=== PATIENT | female | born 1940 | race Hispanic/Latino ===

== ENCOUNTER 2017-03-23 18:18 | Emergency (ER) | payer MEDICARE, OTHER ==
[2017-03-23 18:35] VITALS: BP 153/82; PULSE 79; RESP 19; TEMP 97.7; O2SAT 97
--- NOTE | 2017-03-23 19:33 | ED PDOC ---
HPI: Trauma/Fall - HPI Time Seen by Provider: 03/23/17 19:12 Chief Complaint (Nursing): Trauma Chief Complaint (Provider): fall injury History Per: Patient History/Exam Limitations: no limitations Onset/Duration Of Symptoms: Mins (prior to arrival) Additional Complaint(s): 76 year old female with previous medical history of glaucoma and asthma, who presents to the emergency department for an evaluation of left-sided rib pain status post tripping on a curb prior to arrival. Denied any loss of consciousness, shortness of breath, abdominal pain, nausea or vomiting. PMD: Sincere Alex MD Past Medical History Reviewed: Historical Data, Nursing Documentation, Vital Signs Vital Signs: Last Vital Signs Temp 97.7 F 03/23/17 18:29 Pulse 79 03/23/17 18:29 Resp 19 03/23/17 18:29 BP 153/82 H 03/23/17 18:29 Pulse Ox 97 03/23/17 18:29 - Medical History PMH: Asthma Denies: No Chronic Diseases, Diabetes, HTN Other PMH: glucoma - Surgical History Surgical History: No Surg Hx - Family History Family History: States: Unknown Family Hx - Home Medications Home Medications: Ambulatory Orders Medication Instructions Recorded Ibuprofen [Motrin] 600 mg PO TID 7 Days tab 03/23/17 - Allergies Allergies/Adverse Reactions: Allergies Allergy/AdvReac Type Severity Reaction Status Date / Time clams Allergy VOMITING Verified 03/23/17 18:36 Penicillins Allergy ANAPHYLAXIS Verified 03/23/17 18:36 Review of Systems ROS Statement: Except As Marked, All Systems Reviewed And Found Negative Respiratory: Negative for: Shortness of Breath Gastrointestinal: Negative for: Nausea, Vomiting, Abdominal Pain Musculoskeletal: Positive for: Other (left-sided rib pain) Neurological: Negative for: Other (LOC) Physical Exam - Reviewed Nursing Documentation Reviewed: Yes Vital Signs Reviewed: Yes - Physical Exam Appears: Positive for: No Acute Distress, Uncomfortable Head Exam: Positive for: ATRAUMATIC, NORMAL INSPECTION, NORMOCEPHALIC Cardiovascular/Chest: Positive for: Regular Rate, Rhythm, Chest Non Tender Respiratory: Positive for: Normal Breath Sounds. Negative for: Decreased Breath Sounds, Respiratory Distress Gastrointestinal/Abdominal: Positive for: Normal Exam, Soft. Negative for: Tenderness Back: Positive for: Other (left-sided upper lateral back tenderness with no ecchymosis, edema or deformity). Negative for: Normal Inspection Extremity: Positive for: Normal ROM (upper/lower) Neurologic/Psych: Positive for: Alert (x3), Oriented - ECG O2 Sat by Pulse Oximetry: 97 (RA) Pulse Ox Interpretation: Normal - Radiology X-Ray: Interpreted by Me, Viewed By Me X-Ray Interpretation: No Acute Disease - Progress ED Course And Treament: 2054: Stable. AAOx3. Pain controlled. Fu with pcp. Medical Decision Making Medical Decision Making: Initial Impression: Rib injury S/P fall Initial Plan: * Toradol 15mg IM * Xray ribs (left) Scribe Attestation: Documented by Prema Cruz, acting as a scribe for Jordan Munoz MD. Provider Scribe Attestation: All medical record entries made by the Scribe were at my direction and personally dictated by me. I have reviewed the chart and agree that the record accurately reflects my personal performance of the history, physical exam, medical decision making, and the department course for this patient. I have also personally directed, reviewed, and agree with the discharge instructions and disposition. Disposition - Clinical Impression Clinical Impression: Chest wall contusion - Patient ED Disposition Is Patient to be Admitted: No Counseled Patient/Family Regarding: Studies Performed, Diagnosis, Need For Followup, Rx Given - Disposition Referrals: [facility] [Outside] - 03/24/17 Disposition: Routine/Home Disposition Time: 20:55 Condition: STABLE Additional Instructions: Return if not better in 3 days. Prescriptions: Ibuprofen [Motrin] 600 mg PO TID 7 Days tab Instructions: Chest Wall Pain (ED) Forms: [email or web address] (H[place]er)
--- NOTE | 2017-03-24 10:13 | RAD ---
PROCEDURE: Radiographs of the Chest and Left Ribs. HISTORY: pain COMPARISON: None available. TECHNIQUE: Frontal radiograph of the chest and multiple oblique radiographs of the left ribs were obtained. FINDINGS: LEFT RIBS: No acute rib fracture or destructive bony lesion visualized. LUNGS: The lungs are well inflated and clear. PLEURA: No pneumothorax or pleural fluid. CARDIOVASCULAR: Normal sized heart. No pulmonary vascular congestion. OTHER FINDINGS: None. IMPRESSION: No acute rib fracture. Clear lungs.
== END 2017-03-23 21:20 | disposition home or self-care (01) ==
LOC: H.ER 18:18
DX: S20.219A Contusion of unspecified front wall of thorax, initial encounter (principal); W19.XXXA Unspecified fall, initial encounter; Y92.480 Sidewalk as the place of occurrence of the external cause; H40.9 Unspecified glaucoma; Z88.0 Allergy status to penicillin; J45.909 Unspecified asthma, uncomplicated
CPT/HCPCS: 71101; 96372; 99282; J1885

== ENCOUNTER 2017-06-01 16:18 | Inpatient (IN) | payer MEDICARE, OTHER ==
[2017-06-01] MEDS ORDERED: Iohexol 240 (50 ml) PO ONE (17:39)
[2017-06-01] MEDS ORDERED: Sodium Chloride 0.9% 1,000 ML IV STA (17:40)
[2017-06-01] MEDS ORDERED: Iohexol 240 (50 ml) ONE (17:59)
--- NOTE | 2017-06-01 18:06 | ED PDOC ---
HPI: Abdomen Time Seen by Provider: 06/01/17 16:46 Chief Complaint (Nursing): Abdominal Pain Chief Complaint (Provider): Abominal pain History Per: Patient History/Exam Limitations: no limitations Onset/Duration Of Symptoms: Days (Noon yesterday), Worse Since (onset) Current Symptoms Are (Timing): Still Present Location Of Pain/Discomfort: RUQ, RLQ, LLQ, Suprapubic Quality Of Discomfort: "Pain" Associated Symptoms: Nausea, Loss Of Appetite, Urinary Symptoms (possible blood in urine). denies: Vomiting, Diarrhea, Constipation, Other (black or bloody stool. ) Additional Complaint(s): Lluvia Mendenhall is a 76 year old female, with a past medical history of asthma , who presents to the emergency department complaining of abdominal pain onset since noon yesterday. Patient reports a suprapubic pain at noon yesterday that lasted half an hour and resolved spontaneously. Around midnight last night it reoccurred and its now constant and worsening since onset. She states the pain is in the suprapubic and bilateral lower quadrant region and feels like it's radiating to the RUQ. She also reports possible bloody urine, nausea, and loss of appetite today. Patient saw Dr. Poole today who advised to come to the ER for further evaluation. She denies any diarrhea, vomiting, constipation, black or bloody stool. No further medical complaints. PMD: Jerome Poole Past Medical History Reviewed: Historical Data, Nursing Documentation, Vital Signs Vital Signs: Last Vital Signs Temp 99.3 F 06/07/17 07:55 Pulse 68 06/07/17 07:55 Resp 20 06/07/17 07:55 BP 130/71 06/07/17 07:55 Pulse Ox 96 06/07/17 07:55 - Medical History PMH: Asthma Denies: Diabetes, HTN, Chronic Kidney Disease - Surgical History Surgical History: Tonsillectomy Other surgeries: bunion surgery - Family History Family History: States: Other Other Family History: COPD - Social History Current smoker - smoking cessation education provided: No Alcohol: Social Drugs: Denies - Home Medications Home Medications: Ambulatory Orders Medication Instructions Recorded Naproxen [Naprosyn] 500 mg PO BID 06/01/17 Doxycycline Hyclate [Doryx] 100 mg PO Q12 14 Days #28 cap 06/07/17 metroNIDAZOLE [Flagyl] 500 mg PO Q8 14 Days #42 tab 06/07/17 - Allergies Allergies/Adverse Reactions: Allergies Allergy/AdvReac Type Severity Reaction Status Date / Time clams Allergy VOMITING Verified 03/23/17 18:36 Penicillins Allergy ANAPHYLAXIS Verified 03/23/17 18:36 Review of Systems ROS Statement: Except As Marked, All Systems Reviewed And Found Negative Gastrointestinal: Positive for: Nausea, Abdominal Pain (Suprapubic, LLQ, RLQ, RUQ. ), Other (loss of appetite.). Negative for: Vomiting, Diarrhea, Constipation, Melena Physical Exam - Reviewed Nursing Documentation Reviewed: Yes Vital Signs Reviewed: Yes - Physical Exam Appears: Positive for: Non-toxic Head Exam: Positive for: ATRAUMATIC, NORMAL INSPECTION, NORMOCEPHALIC Skin: Positive for: Normal Color, Warm, Dry Eye Exam: Positive for: EOMI, PERRL ENT: Negative for: Pharyngeal Erythema, Tonsillar Exudate Neck: Positive for: Painless ROM, Supple Cardiovascular/Chest: Positive for: Regular Rate, Rhythm. Negative for: Murmur Respiratory: Positive for: Normal Breath Sounds. Negative for: Respiratory Distress Gastrointestinal/Abdominal: Positive for: Soft, Tenderness (Suprapubic tenderness. b/l lower quadrant tenderness to palpation, right side more so than left. Positive McBurney's point and RUQ tenderness. ). Negative for: Mass, Distended, Guarding, Rebound Back: Positive for: Normal Inspection. Negative for: L CVA Tenderness, R CVA Tenderness Extremity: Positive for: Normal ROM. Negative for: Deformity Lymphatic: Negative for: Adenopathy Neurologic/Psych: Positive for: Alert, Oriented. Negative for: Motor/Sensory Deficits - Laboratory Results Result Diagrams: 06/06/17 06:20 06/06/17 06:20 - ECG O2 Sat by Pulse Oximetry: 97 (RA) Pulse Ox Interpretation: Normal Medical Decision Making Medical Decision Making: Initial Impression: abdominal pain. Differential includes but not limited to appendicitis, colitis, enteritis, UTI cystitis. Initial Plan: --Type and screen --Abd Pelvis PO & IV contrast [CT] --CMP --Lact Acid, Plasma --Urine dipstick --CBC w/ differential --PTT --PT --Omnipaque 240 50 ml PO --Morphine 4 mg IVP --Sodium Chloride 1,000 ml IV 150 mls/hr --Zofran Inj 8 mg IV --Blood culture --Urine culture --Urinalysis --Reevaluation 22:11 Abdomen/Pelvis CT FINDINGS: LOWER THORAX: Small hiatal hernia. ABDOMEN: LIVER: Fatty infiltration of the liver. GALLBLADDER AND BILE DUCTS: No CT evidence of acute cholecystitis. No evidence of significant biliary ductal dilatation. PANCREAS: No CT evidence of acute pancreatitis. SPLEEN: 1.6 cm low-density splenic lesion. This does not appear to represents a simple cyst. It could represent a hemangioma. No evidence of diffuse splenic lesions. No evidence of significant splenomegaly. ADRENALS: No acute abnormality of the adrenal glands identified. KIDNEYS AND URETERS: 2 cm peripelvic cyst in the lower pole of the right kidney. Bilateral perinephric stranding, a nonspecific finding. No evidence of hydroureteronephrosis. STOMACH AND BOWEL: Findings highly suspicious for a partial small bowel obstruction, secondary to a focally thick walled pelvic small bowel loop, image 127/series 3. This small bowel loop is markedly thick walled, and abuts a suspected small abscess in the anterior pelvis, described below. There is mild dilatation of multiple small bowel loops proximal to the thickwalled loops, and the small bowel loops distal to it are mildly decompressed to normal in caliber. There is passage of enteric contrast through the entire small bowel, into the colon, with no evidence of a complete or high grade SBO. Extensive colonic diverticulosis. APPENDIX: Appendix is seen, and is within normal limits in appearance. PELVIS: BLADDER: No acute abnormality of the bladder identified. REPRODUCTIVE:No acute abnormality of the reproductive organs is seen. No acute abnormality of the uterus identified. No evidence of large adnexal masses. ABDOMEN and PELVIS: INTRAPERITONEAL SPACE: Best seen on image 133 of series 3, there is a 3 x 1.6 cm ovoid collection of fluid and air in the anterior pelvis, highly suspicious for a pelvic abscess. This closely abuts the markedly thick-walled small bowel loop in the pelvis described above. It also connects via a small tract of air to the sigmoid colon, and abuts the bladder. There is nearby pelvic fat stranding, suspicious for inflammation. There is nearby wall thickening of the sigmoid colon, and there is extensive sigmoid diverticulitis. The abscess could be either the sequela of enteritis with focal perforation versus diverticulitis with focal perforation. No evidence of diffuse free intraperitoneal air. BONES/JOINTS: Fracture of the left ninth rib posteriorly, which appears recent, and could be acute or subacute in nature. SOFT TISSUES: Small umbilical hernia, containing only fat. VASCULATURE: No evidence of abdominal aortic aneurysm. No evidence of periaortic hemorrhage. LYMPH NODES: No evidence of diffuse lymphadenopathy. IMPRESSION: - Findings highly suspicious for a small 3 x 1.6 cm abscess in the anterior pelvis. This could be the sequela of either marked enteritis involving a pelvic small bowel loop, associated with a focal/contained perforation, versus sigmoid diverticulitis associated with a focal/contained perforation. No evidence of diffuse free intraperitoneal air. - Findings compatible with a partial SBO, secondary to a markedly thick walled pelvic small bowel loop. The wall thickening could be due to enteritis versus reactive wall thickening from nearby sigmoid diverticulitis. - Fracture of the left ninth rib posteriorly, which appears recent. - Otherwise, no evidence of significant acute process. - See above for remaining findings. DW pt findings and plan of care. Needs hospitalization for IV antibiotics, surgical evaluation, and continued observation for progression of abscess that can develop into peritonitis and sepsis. 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 Scribe Attestation: Documented by William Birch, acting as a scribe for Pamela Mcgregor MD Provider Scribe Attestation: All medical record entries made by the Scribe were at my direction and personally dictated by me. I have reviewed the chart and agree that the record accurately reflects my personal performance of the history, physical exam, medical decision making, and the department course for this patient. I have also personally directed, reviewed, and agree with the discharge instructions and disposition. Disposition - Clinical Impression Clinical Impression: Intra-abdominal abscess Counseled Patient/Family Regarding: Studies Performed, Diagnosis - Disposition Disposition Time: 22:00 Condition: FAIR - Pt Status Changed To: Hospital Disposition Of: Inpatient - Admit Certification Admit to Inpatient:: After my assessment, the patient will require hospitalization for at least two midnights. This is because of the severity of symptoms shown, intensity of services needed, and/or the medical risk in this patient being treated as an outpatient. - POA Present On Arrival: None
[2017-06-01 18:31] LABS: BASO % 0.1 % (0.0-2.0); LYMPH # 0.6 K/uL (1.0-4.3); LYMPH % 4.5 % (20.0-40.0); MEAN CELL VOLUME 103.9 fl (81.0-99.0); MEAN CORPUSCULAR HEMOGLOBIN 34.3 pg (27.0-31.0); MEAN PLATELET VOLUME 8.7 fl (7.2-11.7); MONO # 0.6 K/uL (0.0-0.8); MONO % 4.5 % (0.0-10.0); NEUT # 11.9 K/uL (1.8-7.0); NEUT % 90.9 % (50.0-75.0); PLATELET COUNT 173 K/uL (130-400); RBC 3.79 Mil/uL (3.80-5.20); RED CELL DISTRIBUTION WIDTH 12.9 % (11.5-14.5); WHITE BLOOD COUNT 13.1 K/uL (4.8-10.8)
[2017-06-01 18:42] LABS: SQUAMOUS EPITHIAL 8 /hpf (0-5); URINE BACTERIA RARE (<OCC); URINE BILIRUBIN NEGATIVE (NEGATIVE); URINE BLOOD NEGATIVE (NEGATIVE); URINE CLARITY CLOUDY (Clear); URINE COLOR AMBER (YELLOW); URINE GLUCOSE (UA) NEG (Normal); URINE LEUKOCYTE ESTERASE SMALL Leu/uL (Negative); URINE PROTEIN 100 mg/dL (NEGATIVE)
[2017-06-01 18:52] LABS: ALB/GLOB RATIO 1.2 (1.0-2.1); ALBUMIN 3.8 g/dL (3.5-5.0); ALT/SGPT 24 U/L (9-52); AST/SGOT 34 U/L (14-36); BLOOD UREA NITROGEN 36 mg/dl (7-17); CALCIUM 9.2 mg/dL (8.4-10.2); GFR AFRICAN-AMERICAN > 60; GFR NON-AFRICAN AMERICAN > 60
[2017-06-01 19:10] LABS: INR 1.1 (0.9-1.2); PROTHROMBIN TIME 12.7 Seconds (9.8-13.1)
[2017-06-01] MEDS ORDERED: Iohexol 300 100 ML IJ ONE (20:00)
[2017-06-01] MEDS ORDERED: Sodium Chloride 0.9% 100 ML ONE (20:01)
[2017-06-01 21:35] LABS: BANDS 4 % (0-2); LARGE PLATELETS PRESENT; LYMPHOCYTE 7 % (20-50); METAMYELOCYTE 1 % (0-0); MONOCYTE 5 % (0-10); NEUTROPHIL 83 % (42-75); PLATELET ESTIMATE NORMAL (NORMAL); SMUDGE CELLS PRESENT; TOTAL CELLS COUNTED 100
--- NOTE | 2017-06-01 22:11 | CT ---
EXAM: CT Abdomen and Pelvis With Intravenous Contrast EXAM DATE/TIME: 06/01/2017 5:39 PM CLINICAL HISTORY: 76 years old, female; Pain; Abdominal pain; Localized; Lower; Additional info: Abd pain TECHNIQUE: Axial computed tomography images of the abdomen and pelvis with intravenous contrast. All CT scans at this facility use one or more dose reduction techniques, viz.: automated exposure control; ma/kV adjustment per patient size (including targeted exams where dose is matched to indication; i.e. head); or iterative reconstruction technique. Coronal and sagittal reformatted images were created and reviewed. CONTRAST: 90 mL of [id number] administered intravenously. COMPARISON: No relevant prior studies available. FINDINGS: LOWER THORAX: Small hiatal hernia. ABDOMEN: LIVER: Fatty infiltration of the liver. GALLBLADDER AND BILE DUCTS: No CT evidence of acute cholecystitis. No evidence of significant biliary ductal dilatation. PANCREAS: No CT evidence of acute pancreatitis. SPLEEN: 1.6 cm low-density splenic lesion. This does not appear to represents a simple cyst. It could represent a hemangioma. No evidence of diffuse splenic lesions. No evidence of significant splenomegaly. ADRENALS: No acute abnormality of the adrenal glands identified. KIDNEYS AND URETERS: 2 cm peripelvic cyst in the lower pole of the right kidney. Bilateral perinephric stranding, a nonspecific finding. No evidence of hydroureteronephrosis. STOMACH AND BOWEL: Findings highly suspicious for a partial small bowel obstruction, secondary to a focally thick walled pelvic small bowel loop, image 127/series 3. This small bowel loop is markedly thick walled, and abuts a suspected small abscess in the anterior pelvis, described below. There is mild dilatation of multiple small bowel loops proximal to the thickwalled loops, and the small bowel loops distal to it are mildly decompressed to normal in caliber. There is passage of enteric contrast through the entire small bowel, into the colon, with no evidence of a complete or high grade SBO. Extensive colonic diverticulosis. APPENDIX: Appendix is seen, and is within normal limits in appearance. PELVIS: BLADDER: No acute abnormality of the bladder identified. REPRODUCTIVE:No acute abnormality of the reproductive organs is seen. No acute abnormality of the uterus identified. No evidence of large adnexal masses. ABDOMEN and PELVIS: INTRAPERITONEAL SPACE: Best seen on image 133 of series 3, there is a 3 x 1.6 cm ovoid collection of fluid and air in the anterior pelvis, highly suspicious for a pelvic abscess. This closely abuts the markedly thick-walled small bowel loop in the pelvis described above. It also connects via a small tract of air to the sigmoid colon, and abuts the bladder. There is nearby pelvic fat stranding, suspicious for inflammation. There is nearby wall thickening of the sigmoid colon, and there is extensive sigmoid diverticulitis. The abscess could be either the sequela of enteritis with focal perforation versus diverticulitis with focal perforation. No evidence of diffuse free intraperitoneal air. BONES/JOINTS: Fracture of the left ninth rib posteriorly, which appears recent, and could be acute or subacute in nature. SOFT TISSUES: Small umbilical hernia, containing only fat. VASCULATURE: No evidence of abdominal aortic aneurysm. No evidence of periaortic hemorrhage. LYMPH NODES: No evidence of diffuse lymphadenopathy. IMPRESSION: - Findings highly suspicious for a small 3 x 1.6 cm abscess in the anterior pelvis. This could be the sequela of either marked enteritis involving a pelvic small bowel loop, associated with a focal/contained perforation, versus sigmoid diverticulitis associated with a focal/contained perforation. No evidence of diffuse free intraperitoneal air. - Findings compatible with a partial SBO, secondary to a markedly thick walled pelvic small bowel loop. The wall thickening could be due to enteritis versus reactive wall thickening from nearby sigmoid diverticulitis. - Fracture of the left ninth rib posteriorly, which appears recent. - Otherwise, no evidence of significant acute process. - See above for remaining findings.
[2017-06-01] MEDS ORDERED: Ciprofloxacin 400mg/200ml D5W 400 MG/200 ML BAG IV STA (22:17)
[2017-06-01] MEDS ORDERED: Ciprofloxacin 400mg/200ml D5W 400 MG/200 ML BAG IVPB ONE (23:03)
--- NOTE | 2017-06-01 23:54 | CP.PCM.HP ---
<Cong Patel - Last Filed: 06/02/17 02:59> History of Present Illness - History of Present Illness History of Present Illness: "my stomach has been hurting for 2 days, but last night it worsened abruptly" 76 y/o female with a PMHx remarkable for mild intermittent asthma and glaucoma presented to ED from PMDs office for evaluation of abdominal pain. Pt reports pain started two days, w/o inciting event, disappeared, and then suddenly worsened last night, waking her out of bed. Pain is located in her lower abdominal region, more so to the LLQ, is 7/10, constant, achy with sharp episodes, radiates to entire abdomen, alleviated with rest and exacerbated with movement. Associated with nausa. Denies any medication usage. Was seen by Dr. Poole today, whom sent her to the ED. Denies fever/chills, headaches, changes in vision, CP/SOB/palpitations, V/D/C, urinary symptoms, back pain, rash. PMD: Virgilio PMHx: mild intermittent asthma, glaucoma Meds: albuterol rescue inhaler ALL: Penicillin (anaphylaxis) Psurghx: none FamilyHx: none Social: social ETOH, denies tobacco/drug abuse Present on Admission - Present on Admission Any Indicators Present on Admission: No Review of Systems - Constitutional Constitutional: absent: As Per HPI, Anorexia, Chills, Daytime Sleepiness, Excessive Sweating, Fatigue, Fever, Frequent Falls, Headache, Increased Appetite , Lethargy, Malaise, Night Sweats, Snoring, Sleep Apnea, Weight Gain, Weight Loss, Weakness, Other - EENT Eyes: absent: As Per HPI, Blind Spots, Blurred Vision, Change in Vision, Decreased Night Vision, Diplopia, Discharge, Dry Eye, Exophthalmos, Floaters, Irritation, Itchy Eyes, Loss of Peripheral Vision, Pain, Photophobia, Requires Corrective Lenses, Sees Flashes, Spots in Vision, Tunnel Vision, Other Visual Disturbances, Loss of Vision, Other Nose/Mouth/Throat: absent: As Per HPI, Epistaxis, Nasal Congestion, Nasal Discharge, Nasal Obstruction, Nasal Trauma, Nose Pain, Post Nasal Drip, Sinus Pain, Sinus Pressure, Bleeding Gums, Change in Voice, Dental Pain, Dry Mouth, Dysphagia, Halitosis, Hoarsness, Lip Swelling, Mouth Lesions, Mouth Pain, Odynophagia, Sore Throat, Throat Swelling, Tongue Swelling, Facial Pain, Neck Pain, Neck Mass, Other - Cardiovascular Cardiovascular: absent: As Per HPI, Acrocyanosis, Chest Pain, Chest Pain at Rest , Chest Pain with Activity, Claudication, Diaphoresis, Dyspnea, Dyspnea on Exertion, Edema, Irregular Heart Rhythm, Pain Radiating to Arm/Neck/Jaw, Leg Edema, Leg Ulcers, Lightheadedness, Orthopnea, Palpitations, Paroxysmal Nocturnal Dyspnea, Pedal Edema, Radiating Pain, Rapid Heart Rate, Slow Heart Rate, Syncope, Other - Respiratory Respiratory: absent: As Per HPI, Cough, Dyspnea, Hemoptysis, Dyspnea on Exertion , Wheezing, Snoring, Stridor, Pain on Inspiration, Chest Congestion, Excessive Mucous Production, Change in Mucous Color, Pain with Coughing, Other - Gastrointestinal Gastrointestinal: Abdominal Pain. absent: As Per HPI, Belching, Bloating, Change in Bowel Habits, Change in Stool Character, Coffee Ground Emesis, Constipation, Cramping, Diarrhea, Dyspepsia, Dysphagia, Early Satiety, Excessive Flatus, Fecal Incontinence, Heartburn, Hematemesis, Hematochezia, Loose Stools, Melena, Nausea, Odynophagia, Temesmus, Vomiting, Other Past Patient History - Infectious Disease Hx of Infectious Diseases: None - Past Social History Smoking Status: Never Smoked Alcohol: Social Drugs: Denies Home Situation {Lives}: With Family - CARDIAC Hx Hypertension: No - PULMONARY Hx Asthma: Yes - NEUROLOGICAL Hx Neurological Disorder: No - HEENT Hx HEENT Problems: No - RENAL Hx Chronic Kidney Disease: No - ENDOCRINE/METABOLIC Hx Endocrine Disorders: No - HEMATOLOGICAL/ONCOLOGICAL Hx Blood Disorders: No - INTEGUMENTARY Hx Dermatological Problems: No - MUSCULOSKELETAL/RHEUMATOLOGICAL Hx Musculoskeletal Disorders: No - PSYCHIATRIC Hx Substance Use: No - SURGICAL HISTORY Hx Tonsillectomy: Yes - ANESTHESIA Hx Anesthesia: No Meds Allergies/Adverse Reactions: Allergies Allergy/AdvReac Type Severity Reaction Status Date / Time clams Allergy VOMITING Verified 03/23/17 18:36 Penicillins Allergy ANAPHYLAXIS Verified 03/23/17 18:36 Physical Exam - Constitutional Appears: Non-toxic, No Acute Distress - Head Exam Head Exam: ATRAUMATIC, NORMOCEPHALIC - Eye Exam Eye Exam: EOMI, Normal appearance. absent: Conjunctival injection, Scleral icterus Pupil Exam: NORMAL ACCOMODATION, PERRL - ENT Exam ENT Exam: Mucous Membranes Moist, Normal Exam - Neck Exam Neck exam: Positive for: Full Rom. Negative for: Tenderness - Respiratory Exam Respiratory Exam: Clear to Auscultation Bilateral, NORMAL BREATHING PATTERN. absent: Decreased Breath Sounds, Rales, Rhonchi, Wheezes - Cardiovascular Exam Cardiovascular Exam: REGULAR RHYTHM, RRR, Rubs, +S1, +S2. absent: Tachycardia, Gallop, JVD, Systolic Murmur - GI/Abdominal Exam GI & Abdominal Exam: Distended (tympanic to percussion is all quads), Guarding ( voluntary), Normal Bowel Sounds, Soft, Tenderness. absent: Firm, Hernia, Rebound, Rigid - Extremities Exam Extremities exam: Positive for: normal capillary refill, normal inspection, pedal pulses present. Negative for: calf tenderness, pedal edema, tenderness - Back Exam Back exam: NORMAL INSPECTION. absent: CVA tenderness (L), CVA tenderness (R) - Neurological Exam Neurological exam: Alert, CN II-XII Intact, Normal Gait, Oriented x3, Reflexes Normal - Psychiatric Exam Psychiatric exam: Normal Affect, Normal Mood - Skin Skin Exam: Dry, Intact, Normal Color, Warm Results - Vital Signs Recent Vital Signs: Last Vital Signs Temp 100.2 F H 06/01/17 23:50 Pulse 88 06/01/17 23:50 Resp 16 06/01/17 16:37 BP 114/52 L 06/01/17 23:50 Pulse Ox 96 06/01/17 23:50 - Labs Result Diagrams: 06/01/17 18:24 06/01/17 18:24 Labs: Laboratory Results - last 24 hr 06/01/17 06/01/17 06/01/17 18:24 18:24 18:24 WBC 13.1 H RBC 3.79 L Hgb 13.0 Hct 39.3 MCV 103.9 H MCH 34.3 H MCHC 33.0 RDW 12.9 Plt Count 173 MPV 8.7 Neut % (Auto) 90.9 H Lymph % (Auto) 4.5 L [place] % (Auto) 4.5 Eos % (Auto) 0.0 Baso % (Auto) 0.1 Neut # (Auto) 11.9 H Lymph # (Auto) 0.6 L [place] # (Auto) 0.6 Eos # (Auto) 0.0 Baso # (Auto) 0.0 Neutrophils % (Manual) 83 H Band Neutrophils % 4 H Lymphocytes % (Manual) 7 L Monocytes % (Manual) 5 Metamyelocytes % 1 H Smudge Cells Present Platelet Estimate Normal Large Platelets Present Macrocytosis (manual) Slight PT INR APTT Sodium 141 Potassium 4.4 Chloride 99 Carbon Dioxide 27 Anion Gap 19 BUN 36 H Creatinine 0.9 Est GFR ( Amer) > 60 Est GFR (Non-Af Amer) > 60 Random Glucose 116 H Lactic Acid 1.2 Calcium 9.2 Total Bilirubin 1.3 AST 34 ALT 24 Alkaline Phosphatase 53 Total Protein 6.9 Albumin 3.8 Globulin 3.1 Albumin/Globulin Ratio 1.2 Urine Color Urine Clarity Urine pH Ur Specific [place] Urine Protein Urine Glucose (UA) Urine Ketones Urine Blood Urine Nitrate Urine Bilirubin Urine Urobilinogen Ur Leukocyte Esterase Urine RBC (Auto) Urine Microscopic WBC Ur Squamous Epith Cells Urine Bacteria Blood Type Antibody Screen BBK History Checked 06/01/17 06/01/17 06/01/17 18:24 18:24 21:07 WBC RBC Hgb Hct MCV MCH MCHC RDW Plt Count MPV Neut % (Auto) Lymph % (Auto) [place] % (Auto) Eos % (Auto) Baso % (Auto) Neut # (Auto) Lymph # (Auto) [place] # (Auto) Eos # (Auto) Baso # (Auto) Neutrophils % (Manual) Band Neutrophils % Lymphocytes % (Manual) Monocytes % (Manual) Metamyelocytes % Smudge Cells Platelet Estimate Large Platelets Macrocytosis (manual) PT 12.7 INR 1.1 APTT 27.0 Sodium Potassium Chloride Carbon Dioxide Anion Gap BUN Creatinine Est GFR ( Amer) Est GFR (Non-Af Amer) Random Glucose Lactic Acid Calcium Total Bilirubin AST ALT Alkaline Phosphatase Total Protein Albumin Globulin Albumin/Globulin Ratio Urine Color Stephania Urine Clarity Cloudy Urine pH 5.0 Ur Specific [place] 1.034 H Urine Protein 100 Urine Glucose (UA) Neg Urine Ketones Negative Urine Blood Negative Urine Nitrate Negative Urine Bilirubin Negative Urine Urobilinogen 4.0 H Ur Leukocyte Esterase Small Urine RBC (Auto) 3 Urine Microscopic WBC 30 H Ur Squamous Epith Cells 8 H Urine Bacteria Rare Blood Type A POSITIVE Antibody Screen Negative BBK History Checked No verified bt Assessment & Plan - Assessment and Plan (Free Text) Assessment: 76 y/o female admitted for perforated diverticulitis. Plan: 1) Perforated Diverticulitis -NPO -Pain control -IV fluids as ordered -[id number]/flagyl Q8H -Gen/Surg consult: awaiting recommendations -monitor vitals -repeat AM labs 2) Prophylaxis -Lovenox 40mg SC QD 3) Code Status: -full code <Jerome Poole - Last Filed: 06/03/17 07:03> Results - Vital Signs Recent Vital Signs: Last Vital Signs Temp 99.4 F 06/03/17 00:00 Pulse 90 06/03/17 00:00 Resp 20 06/03/17 00:00 BP 111/67 06/03/17 00:00 Pulse Ox 95 06/03/17 00:00 - Labs Result Diagrams: 06/03/17 05:55 06/03/17 05:55 Labs: Laboratory Results - last 24 hr 06/02/17 06/03/17 06/03/17 05:45 05:55 05:55 WBC 13.5 H 10.8 RBC 3.30 L 3.41 L Hgb 11.5 L 11.7 L Hct 34.5 35.8 MCV 104.6 H 104.9 H MCH 34.8 H 34.3 H MCHC 33.2 32.7 L RDW 12.9 12.7 Plt Count 150 159 MPV 8.3 Neut % (Auto) 82.7 H Lymph % (Auto) 8.3 L [place] % (Auto) 5.1 Eos % (Auto) 3.7 Baso % (Auto) 0.2 Neut # (Auto) 8.9 H Lymph # (Auto) 0.9 L [place] # (Auto) 0.6 Eos # (Auto) 0.4 Baso # (Auto) 0.0 Sodium 136 Potassium 4.4 Chloride 101 Carbon Dioxide 26 Anion Gap 13 BUN 19 H Creatinine 1.0 Est GFR ( Amer) > 60 Est GFR (Non-Af Amer) 54 Random Glucose 135 H Calcium 8.3 L Attending/Attestation - Attestation I have personally seen and examined this patient.: Yes I have fully participated in the care of the patient.: Yes I have reviewed all pertinent clinical information: Yes
[2017-06-02] MEDS ORDERED: Potassium Ch 20mEq in D5-1/2NS 1,000 ML IV SCH (00:30)
[2017-06-02] MEDS: metroNIDAZOLE 500mg/100ml NS 100 ML IV STA (01:06)
[2017-06-02] MEDS ORDERED: Dextrose 5%/0.45% NS 1,000 ML IV SCH ×2 (01:15→07:54)
--- NOTE | 2017-06-02 01:48 | CP.PCM.CON ---
<SangvjMau - Last Filed: 06/02/17 01:44> History of Present Illness - History of Present Illness History of Present Illness: General Surgery Consult for Dr. Barry This is a 76F with a PMH of glaucoma and ssthma. She presents to the ED with 2 days of abdominal pain that was acute onset on tuesday. She denies fevers or chills at home. She went to her PCP who referred her to the ED. In the ED she had a CT that was significant for a localized diverticular perforation. She is passing gas and moving her bowels at home and in the hospital. She denies any emesis. She denies fevers chills chest pain SOB. PMH: See above PSH: Denies ALL: Pen Social: Denies tobacco or drugs, reports a glass of wine per night. Review of Systems - Review of Systems All systems: reviewed and no additional remarkable complaints except - Constitutional Constitutional: Chills - Gastrointestinal Gastrointestinal: Diarrhea, Nausea. absent: Hematemesis, Hematochezia, Vomiting Past Patient History - Infectious Disease Hx of Infectious Diseases: None - Past Medical History & Family History Past Medical History?: Yes - Past Social History Smoking Status: Never Smoked - CARDIAC Hx Cardiac Disorders: No Hx Hypertension: No - PULMONARY Hx Respiratory Disorders: Yes Hx Asthma: Yes Hx Pneumonia: Yes - NEUROLOGICAL Hx Neurological Disorder: No - HEENT Hx HEENT Problems: Yes Hx Glaucoma: Yes Hx Sinusitis: Yes Other/Comment: Use Eyeglasses - RENAL Hx Chronic Kidney Disease: No - ENDOCRINE/METABOLIC Hx Endocrine Disorders: No - HEMATOLOGICAL/ONCOLOGICAL Hx Blood Disorders: No - INTEGUMENTARY Hx Dermatological Problems: No - MUSCULOSKELETAL/RHEUMATOLOGICAL Hx Musculoskeletal Disorders: Yes Hx Arthritis: Yes Hx Falls: Yes - GASTROINTESTINAL Hx Gastrointestinal Disorders: No - GENITOURINARY/GYNECOLOGICAL Hx Genitourinary Disorders: No - PSYCHIATRIC Hx Psychophysiologic Disorder: No Hx Substance Use: No - SURGICAL HISTORY Hx Surgeries: Yes Hx Tonsillectomy: Yes Other/Comment: Bunion Surgery and hammer toe surgery about 15 yrs. ago - ANESTHESIA Hx Anesthesia: Yes Hx Anesthesia Reactions: No Hx Malignant Hyperthermia: No Has any member of the family had a problem w/ anesthesia?: No Meds Allergies/Adverse Reactions: Allergies Allergy/AdvReac Type Severity Reaction Status Date / Time clams Allergy VOMITING Verified 03/23/17 18:36 Penicillins Allergy ANAPHYLAXIS Verified 03/23/17 18:36 - Medications Medications: Current Medications Dextrose/Sodium Chloride (Dextrose 5%/0.45% Ns 1000 Ml) 1,000 mls @ 100 mls/hr IV .Q10H PRASHANT Stop: 06/03/17 01:14 Influenza Virus Vaccine (Afluria (Pf)(18yr & Older)) 0.5 ml IM .ONCE ONE Stop: 06/02/17 09:01 Ketorolac Tromethamine (Toradol) 30 mg IVP Q6 PRN PRN Reason: Pain, moderate (4-7) Morphine Sulfate (Morphine) 2 mg IVP Q4 PRN PRN Reason: Pain, severe (8-10) Ondansetron HCl (Zofran Inj) 4 mg IVP Q6 PRN PRN Reason: Nausea/Vomiting Physical Exam - Constitutional Appears: Non-toxic, No Acute Distress - Head Exam Head Exam: ATRAUMATIC, NORMOCEPHALIC - Eye Exam Eye Exam: EOMI, Normal appearance - ENT Exam ENT Exam: Mucous Membranes Moist - Respiratory Exam Respiratory Exam: NORMAL BREATHING PATTERN - Cardiovascular Exam Cardiovascular Exam: REGULAR RHYTHM - GI/Abdominal Exam GI & Abdominal Exam: Soft, Tenderness. absent: Distended, Firm, Guarding, Hernia, Rebound, Rigid - Neurological Exam Neurological exam: Alert, Oriented x3 - Psychiatric Exam Psychiatric exam: Normal Affect, Normal Mood - Skin Skin Exam: Dry, Intact Results - Vital Signs Recent Vital Signs: Last Vital Signs Temp 99.1 F 06/02/17 00:27 Pulse 91 H 06/02/17 00:27 Resp 18 06/02/17 00:27 BP 117/70 06/02/17 00:27 Pulse Ox 95 06/02/17 00:27 - Labs Result Diagrams: 06/01/17 18:24 06/01/17 18:24 Labs: Laboratory Results - last 24 hr 06/01/17 06/01/17 06/01/17 18:24 18:24 18:24 WBC 13.1 H RBC 3.79 L Hgb 13.0 Hct 39.3 MCV 103.9 H MCH 34.3 H MCHC 33.0 RDW 12.9 Plt Count 173 MPV 8.7 Neut % (Auto) 90.9 H Lymph % (Auto) 4.5 L [place] % (Auto) 4.5 Eos % (Auto) 0.0 Baso % (Auto) 0.1 Neut # (Auto) 11.9 H Lymph # (Auto) 0.6 L [place] # (Auto) 0.6 Eos # (Auto) 0.0 Baso # (Auto) 0.0 Neutrophils % (Manual) 83 H Band Neutrophils % 4 H Lymphocytes % (Manual) 7 L Monocytes % (Manual) 5 Metamyelocytes % 1 H Smudge Cells Present Platelet Estimate Normal Large Platelets Present Macrocytosis (manual) Slight PT INR APTT Sodium 141 Potassium 4.4 Chloride 99 Carbon Dioxide 27 Anion Gap 19 BUN 36 H Creatinine 0.9 Est GFR ( Amer) > 60 Est GFR (Non-Af Amer) > 60 Random Glucose 116 H Lactic Acid 1.2 Calcium 9.2 Total Bilirubin 1.3 AST 34 ALT 24 Alkaline Phosphatase 53 Total Protein 6.9 Albumin 3.8 Globulin 3.1 Albumin/Globulin Ratio 1.2 Urine Color Urine Clarity Urine pH Ur Specific [place] Urine Protein Urine Glucose (UA) Urine Ketones Urine Blood Urine Nitrate Urine Bilirubin Urine Urobilinogen Ur Leukocyte Esterase Urine RBC (Auto) Urine Microscopic WBC Ur Squamous Epith Cells Urine Bacteria Blood Type Antibody Screen BBK History Checked 06/01/17 06/01/17 06/01/17 18:24 18:24 21:07 WBC RBC Hgb Hct MCV MCH MCHC RDW Plt Count MPV Neut % (Auto) Lymph % (Auto) [place] % (Auto) Eos % (Auto) Baso % (Auto) Neut # (Auto) Lymph # (Auto) [place] # (Auto) Eos # (Auto) Baso # (Auto) Neutrophils % (Manual) Band Neutrophils % Lymphocytes % (Manual) Monocytes % (Manual) Metamyelocytes % Smudge Cells Platelet Estimate Large Platelets Macrocytosis (manual) PT 12.7 INR 1.1 APTT 27.0 Sodium Potassium Chloride Carbon Dioxide Anion Gap BUN Creatinine Est GFR ( Amer) Est GFR (Non-Af Amer) Random Glucose Lactic Acid Calcium Total Bilirubin AST ALT Alkaline Phosphatase Total Protein Albumin Globulin Albumin/Globulin Ratio Urine Color Stephania Urine Clarity Cloudy Urine pH 5.0 Ur Specific [place] 1.034 H Urine Protein 100 Urine Glucose (UA) Neg Urine Ketones Negative Urine Blood Negative Urine Nitrate Negative Urine Bilirubin Negative Urine Urobilinogen 4.0 H Ur Leukocyte Esterase Small Urine RBC (Auto) 3 Urine Microscopic WBC 30 H Ur Squamous Epith Cells 8 H Urine Bacteria Rare Blood Type A POSITIVE Antibody Screen Negative BBK History Checked No verified bt Assessment & Plan - Assessment and Plan (Free Text) Assessment: 76F with diveritulitis with localized infection NPO IV abx serial abdominal exams will need colonospcoy after resolution D/W Dr. Jhonny Vizcarra PGY2 <Pj Rosales - Last Filed: 06/02/17 10:54> History of Present Illness - History of Present Illness History of Present Illness: Patient was seen and examined at the bedside. Agree with resident's note above. Never had colonoscopy Meds - Medications Medications: Current Medications Acetaminophen (Tylenol 325mg Tab) 975 mg PO Q6 PRN PRN Reason: Pain, moderate (4-7) Last Admin: 06/02/17 08:51 Dose: 975 mg Docusate Sodium (Colace) 100 mg PO DAILY PRASHANT Enoxaparin Sodium (Lovenox) 40 mg SC DAILY PRASHANT PRN Reason: Protocol Last Admin: 06/02/17 08:59 Dose: 40 mg Hydromorphone HCl (Dilaudid) 0.5 mg IVP Q6H PRN PRN Reason: Pain, severe (8-10) Ciprofloxacin (Cipro 400mg/200ml Dsw) 400 mg in 200 mls @ 200 mls/hr IVPB Q12 PRASHANT PRN Reason: Protocol Last Admin: 06/02/17 08:54 Dose: 200 mls/hr Metronidazole (Flagyl 500mg/100ml Ns) 100 mls @ 100 mls/hr IVPB Q8 PRASHANT PRN Reason: Protocol Last Admin: 06/02/17 09:00 Dose: 100 mls/hr Potassium Chloride/Dextrose/Sod Cl (Potassium Chl 20 Meq In D5-1/2ns) 1,000 mls @ 120 mls/hr IV .Q8H20M PRASHANT Stop: 06/03/17 08:46 Physical Exam - GI/Abdominal Exam Additional comments: soft, mildly distended, tender in the lower abdomen, no rebound, no guarding Results - Vital Signs Recent Vital Signs: Last Vital Signs Temp 98.7 F 06/02/17 07:42 Pulse 86 06/02/17 07:42 Resp 20 06/02/17 07:42 BP 112/69 06/02/17 07:42 Pulse Ox 95 06/02/17 07:42 - Labs Result Diagrams: 06/02/17 05:45 06/02/17 05:45 Labs: Laboratory Results - last 24 hr 06/01/17 06/01/17 06/01/17 18:24 18:24 18:24 WBC 13.1 H RBC 3.79 L Hgb 13.0 Hct 39.3 MCV 103.9 H MCH 34.3 H MCHC 33.0 RDW 12.9 Plt Count 173 MPV 8.7 Neut % (Auto) 90.9 H Lymph % (Auto) 4.5 L [place] % (Auto) 4.5 Eos % (Auto) 0.0 Baso % (Auto) 0.1 Neut # (Auto) 11.9 H Lymph # (Auto) 0.6 L [place] # (Auto) 0.6 Eos # (Auto) 0.0 Baso # (Auto) 0.0 Neutrophils % (Manual) 83 H Band Neutrophils % 4 H Lymphocytes % (Manual) 7 L Monocytes % (Manual) 5 Metamyelocytes % 1 H Smudge Cells Present Platelet Estimate Normal Large Platelets Present Macrocytosis (manual) Slight PT INR APTT Sodium 141 Potassium 4.4 Chloride 99 Carbon Dioxide 27 Anion Gap 19 BUN 36 H Creatinine 0.9 Est GFR ( Amer) > 60 Est GFR (Non-Af Amer) > 60 Random Glucose 116 H Lactic Acid 1.2 Calcium 9.2 Total Bilirubin 1.3 AST 34 ALT 24 Alkaline Phosphatase 53 Total Protein 6.9 Albumin 3.8 Globulin 3.1 Albumin/Globulin Ratio 1.2 Urine Color Urine Clarity Urine pH Ur Specific [place] Urine Protein Urine Glucose (UA) Urine Ketones Urine Blood Urine Nitrate Urine Bilirubin Urine Urobilinogen Ur Leukocyte Esterase Urine RBC (Auto) Urine Microscopic WBC Ur Squamous Epith Cells Urine Bacteria Blood Type Antibody Screen BBK History Checked 06/01/17 06/01/17 06/01/17 18:24 18:24 21:07 WBC RBC Hgb Hct MCV MCH MCHC RDW Plt Count MPV Neut % (Auto) Lymph % (Auto) [place] % (Auto) Eos % (Auto) Baso % (Auto) Neut # (Auto) Lymph # (Auto) [place] # (Auto) Eos # (Auto) Baso # (Auto) Neutrophils % (Manual) Band Neutrophils % Lymphocytes % (Manual) Monocytes % (Manual) Metamyelocytes % Smudge Cells Platelet Estimate Large Platelets Macrocytosis (manual) PT 12.7 INR 1.1 APTT 27.0 Sodium Potassium Chloride Carbon Dioxide Anion Gap BUN Creatinine Est GFR ( Amer) Est GFR (Non-Af Amer) Random Glucose Lactic Acid Calcium Total Bilirubin AST ALT Alkaline Phosphatase Total Protein Albumin Globulin Albumin/Globulin Ratio Urine Color Stephania Urine Clarity Cloudy Urine pH 5.0 Ur Specific [place] 1.034 H Urine Protein 100 Urine Glucose (UA) Neg Urine Ketones Negative Urine Blood Negative Urine Nitrate Negative Urine Bilirubin Negative Urine Urobilinogen 4.0 H Ur Leukocyte Esterase Small Urine RBC (Auto) 3 Urine Microscopic WBC 30 H Ur Squamous Epith Cells 8 H Urine Bacteria Rare Blood Type A POSITIVE Antibody Screen Negative BBK History Checked No verified bt 06/02/17 06/02/17 05:45 05:45 WBC 13.5 H RBC 3.30 L Hgb 11.5 L Hct 34.5 MCV 104.6 H MCH 34.8 H MCHC 33.2 RDW 12.9 Plt Count 150 MPV Neut % (Auto) Lymph % (Auto) [place] % (Auto) Eos % (Auto) Baso % (Auto) Neut # (Auto) Lymph # (Auto) [place] # (Auto) Eos # (Auto) Baso # (Auto) Neutrophils % (Manual) Band Neutrophils % Lymphocytes % (Manual) Monocytes % (Manual) Metamyelocytes % Smudge Cells Platelet Estimate Large Platelets Macrocytosis (manual) PT INR APTT Sodium 138 Potassium 4.2 Chloride 100 Carbon Dioxide 26 Anion Gap 16 BUN 26 H Creatinine 1.0 Est GFR ( Amer) > 60 Est GFR (Non-Af Amer) 54 Random Glucose 139 H Lactic Acid Calcium 8.3 L Total Bilirubin AST ALT Alkaline Phosphatase Total Protein Albumin Globulin Albumin/Globulin Ratio Urine Color Urine Clarity Urine pH Ur Specific [place] Urine Protein Urine Glucose (UA) Urine Ketones Urine Blood Urine Nitrate Urine Bilirubin Urine Urobilinogen Ur Leukocyte Esterase Urine RBC (Auto) Urine Microscopic WBC Ur Squamous Epith Cells Urine Bacteria Blood Type Antibody Screen BBK History Checked - Imaging and Cardiology CT scan - abdomen Status: Image reviewed by me, Report reviewed by me Assessment & Plan - Assessment and Plan (Free Text) Plan: - NPO - IV fluids - pain control - Continue antibiotics - Repeat lab in am - Will require colonoscopy in 6 to 8 weeks - Will follow
[2017-06-02] MEDS: metroNIDAZOLE 500mg/100ml NS 100 ML IVPB SCH ×3 (05:41→17:08)
[2017-06-02 06:50] LABS: BLOOD UREA NITROGEN 26 mg/dl (7-17); CALCIUM 8.3 mg/dL (8.4-10.2); GFR AFRICAN-AMERICAN > 60; GFR NON-AFRICAN AMERICAN 54
[2017-06-02 07:12] LABS: HEMOGLOBIN 11.5 g/dL (12.0-16.0); MEAN CELL VOLUME 104.6 fl (81.0-99.0); MEAN CORPUSCULAR HEMOGLOBIN 34.8 pg (27.0-31.0); MEAN CORPUSCULAR HGB CONC 33.2 g/dL (33.0-37.0); RBC 3.3 Mil/uL (3.80-5.20); RED CELL DISTRIBUTION WIDTH 12.9 % (11.5-14.5); WHITE BLOOD COUNT 13.5 K/uL (4.8-10.8)
--- NOTE | 2017-06-02 08:38 | CP.PCM.PN ---
Addendum entered and electronically signed by Baljit Ceballos DPM 06/02/17 15:10 : Examined patient in regards to possible acute left posterior rib fracture. Patient states that she fell on 03/23/17 and landed on her left side. She subsequently experienced left anterior flank pain and went to [facility] ED where she was told that xray was negative for fracture. Upon further review of xray today it is clear that there is a fracture of the left ninth rib. No evidence of respiratory or musculoskeletal damage directly related to this fracture is appreciated clinically or objectively. In regards to the potential for patient to have SBO, patient is being treated for diverticulitis which is the same treatment that would be applied for partial SBO. Will continue to monitor for symptoms of SBO which include N/V, inability to pass gas, inability to pass stool. Original Note: <Baljit Ceballos - Last Filed: 06/02/17 14:13> Subjective - Date & Time of Evaluation Date of Evaluation: 06/02/17 Time of Evaluation: 08:36 - Subjective Subjective: 76 y/o female with a PMHx remarkable for mild intermittent asthma and glaucoma seen at bedside with attending Dr. Alex after being admitted through the ED last night for increased stomach pain x 2 days. Patient states that her pain today is still present and radiates throughout her abdomen but is markedly improved from last night. She denies any acute overnight events. She is seen to be AAO x 3 and NAD during entirety of visit. She does admit to some small, intermittent episodes of SOB. Patient denies any recent N/V/F/C/CP/D/posterior calf pain when squeezed. Objective - Vital Signs/Intake and Output Vital Signs (last 24 hours): Temp Pulse Resp BP Pulse Ox 98.7 F 86 20 112/69 95 06/02/17 07:42 06/02/17 07:42 06/02/17 07:42 06/02/17 07:42 06/02/17 07:42 Intake and Output: 06/02/17 06/02/17 06:59 18:59 Intake Total 700 Balance 700 - Medications Medications: Current Medications Acetaminophen (Tylenol 325mg Tab) 975 mg PO Q6 PRN PRN Reason: Pain, moderate (4-7) Enoxaparin Sodium (Lovenox) 40 mg SC DAILY [facility] PRN Reason: Protocol Ciprofloxacin (Cipro 400mg/200ml Dsw) 400 mg in 200 mls @ 200 mls/hr IVPB Q12 [facility] PRN Reason: Protocol Metronidazole (Flagyl 500mg/100ml Ns) 100 mls @ 100 mls/hr IVPB Q8 [facility] PRN Reason: Protocol Last Admin: 06/02/17 05:41 Dose: Not Given Dextrose/Sodium Chloride (Dextrose 5%/0.45% Ns 1000 Ml) 1,000 mls @ 120 mls/hr IV .Q8H20M [facility] Stop: 06/03/17 01:14 Influenza Virus Vaccine (Afluria (Pf)(18yr & Older)) 0.5 ml IM .ONCE ONE Stop: 06/02/17 09:01 - Labs Labs: 06/02/17 05:45 06/02/17 05:45 PT 12.7 Seconds (9.8-13.1) 06/01/17 18:24 INR 1.1 (0.9-1.2) 06/01/17 18:24 APTT 27.0 Seconds (25.6-37.1) 06/01/17 18:24 - Constitutional Appears: Well, Non-toxic, No Acute Distress - Head Exam Head Exam: ATRAUMATIC, NORMOCEPHALIC - Eye Exam Eye Exam: EOMI, PERRL Pupil Exam: PERRL - ENT Exam ENT Exam: Mucous Membranes Moist - Neck Exam Neck Exam: Normal Inspection - Respiratory Exam Respiratory Exam: NORMAL BREATHING PATTERN - GI/Abdominal Exam GI & Abdominal Exam: Guarding, Tenderness. absent: Distended, Firm - Rectal Exam Rectal Exam: Deferred - Extremities Exam Extremities Exam: Normal Inspection - Neurological Exam Neurological Exam: Alert, Awake, Oriented x3 - Psychiatric Exam Psychiatric exam: Normal Affect, Normal Mood - Skin Skin Exam: Intact, Normal Color, Warm Assessment and Plan - Assessment and Plan (Free Text) Assessment: 76 y/o female with perforated diverticulitis. Plan: 1) Perforated Diverticulitis - General sugery consult appreciated: Dr. Zacarias - Per surgery, no surgical intervention at this time. Continue with serial abdominal exams, colonoscopy after resolution - Tylenol 975 mg PO q6 prn moderate pain - 0.5 mg Dilaudid prn severe pain - WBC 13.5 from 13.1 - Ciprofloxacin 400 mg IV q12/Flagyl 500 mg IV q8 - Maintenance fluids: D5W 1/2 NS + 20 mEq K+ - Colace 100 mg PO daily - DC Zofran - CT abd/pel: 3 x 1.6 cm abscess in anterior pelvis from either marked enteritis involving pelvic small bowel loop associated with focal/contained perforation vs sigmoid diverticulitis associated with a focal/contained perforation. Partial SBO secondary to thick walled pelvic small bowel loop wall thickening could be due to enteritis vs reactive wall thickening from nearby sigmoid diverticulitis. Fx of left ninth posterior rib, probably recent - Blood cx pending -NPO -monitor vitals -repeat AM labs - PT/OT eval and treat 2) Prophylaxis -Lovenox 40mg SC QD - SCDs - Ambulation 3) Code Status: -full code <Sincere Alex - Last Filed: 06/06/17 06:44> Objective - Vital Signs/Intake and Output Vital Signs (last 24 hours): Temp Pulse Resp BP Pulse Ox 98.8 F 73 19 114/69 95 06/06/17 00:38 06/06/17 00:38 06/06/17 00:38 06/06/17 00:38 06/06/17 00:38 - Medications Medications: Current Medications Ciprofloxacin (Cipro) 500 mg PO Q12 [facility] PRN Reason: Protocol Last Admin: 06/05/17 21:27 Dose: 500 mg Doxycycline Hyclate (Doryx) 100 mg PO Q12 [facility] PRN Reason: Protocol Last Admin: 06/05/17 21:27 Dose: 100 mg Enoxaparin Sodium (Lovenox) 40 mg SC DAILY [facility] PRN Reason: Protocol Last Admin: 06/05/17 08:36 Dose: 40 mg Hydrocortisone (Cortizone 1% Cream) 1 applic TOP BID [facility] Last Admin: 06/05/17 18:42 Dose: 1 applic Metronidazole (Flagyl) 500 mg PO Q8 [facility] PRN Reason: Protocol Last Admin: 06/06/17 00:36 Dose: 500 mg - Labs Labs: 06/05/17 05:30 06/04/17 05:30 PT 12.7 Seconds (9.8-13.1) 06/01/17 18:24 INR 1.1 (0.9-1.2) 06/01/17 18:24 APTT 27.0 Seconds (25.6-37.1) 06/01/17 18:24 Attending/Attestation - Attestation I have personally seen and examined this patient.: Yes I have fully participated in the care of the patient.: Yes I have reviewed all pertinent clinical information, including history, physical exam and plan: Yes
[2017-06-02] MEDS: Ciprofloxacin 400mg/200ml D5W 400 MG/200 ML BAG IVPB SCH ×2 (08:54→21:39)
[2017-06-02] MEDS: Enoxaparin 40 mg Syringe SC SCH (08:59)
[2017-06-02] MEDS ORDERED: metroNIDAZOLE 500mg/100ml NS 100 ML IVPB SCH (09:00)
[2017-06-02] MEDS ORDERED: Influenza Vaccine 18yr & older 0.5 ML/45 MCG SYR IM ONE (09:00)
[2017-06-02] MEDS ORDERED: HYDROmorphone 0.5 mg/0.5 ml ISec IVP PRN (09:15)
[2017-06-02] MEDS: Potassium Ch 20mEq in D5-1/2NS 1,000 ML IV SCH ×2 (12:17→16:47)
[2017-06-03] MEDS: metroNIDAZOLE 500mg/100ml NS 100 ML IVPB SCH ×3 (01:09→16:45)
[2017-06-03] MEDS: Potassium Ch 20mEq in D5-1/2NS 1,000 ML IV SCH ×2 (02:18→02:40)
[2017-06-03 06:20] LABS: BASO % 0.2 % (0.0-2.0); EOS # 0.4 K/uL (0.0-0.7); EOS % 3.7 % (0.0-4.0); HEMOGLOBIN 11.7 g/dL (12.0-16.0); LYMPH # 0.9 K/uL (1.0-4.3); LYMPH % 8.3 % (20.0-40.0); MEAN CELL VOLUME 104.9 fl (81.0-99.0); MEAN CORPUSCULAR HEMOGLOBIN 34.3 pg (27.0-31.0); MEAN CORPUSCULAR HGB CONC 32.7 g/dL (33.0-37.0); MEAN PLATELET VOLUME 8.3 fl (7.2-11.7); MONO # 0.6 K/uL (0.0-0.8); MONO % 5.1 % (0.0-10.0); NEUT # 8.9 K/uL (1.8-7.0); NEUT % 82.7 % (50.0-75.0); RBC 3.41 Mil/uL (3.80-5.20); RED CELL DISTRIBUTION WIDTH 12.7 % (11.5-14.5); WHITE BLOOD COUNT 10.8 K/uL (4.8-10.8)
[2017-06-03 06:51] LABS: BLOOD UREA NITROGEN 19 mg/dl (7-17); CALCIUM 8.3 mg/dL (8.4-10.2); GFR AFRICAN-AMERICAN > 60; GFR NON-AFRICAN AMERICAN 54
--- NOTE | 2017-06-03 07:47 | CP.PCM.PN ---
<Siomara Kingsley - Last Filed: 06/03/17 07:44> Subjective - Date & Time of Evaluation Date of Evaluation: 06/03/17 Time of Evaluation: 07:44 - Subjective Subjective: General Surgery Consult for Dr. Barry Patient seen and evaluated this morning at bedside. Reports that the pain is a lot better than yesterday. Denies of any acute overnight events. Denies of any F /N/V/C/SOB/CP Objective - Vital Signs/Intake and Output Vital Signs (last 24 hours): Temp Pulse Resp BP Pulse Ox 99.4 F 90 20 111/67 95 06/03/17 00:00 06/03/17 00:00 06/03/17 00:00 06/03/17 00:00 06/03/17 00:00 - Medications Medications: Current Medications Docusate Sodium (Colace) 100 mg PO DAILY [facility] Last Admin: 06/02/17 12:18 Dose: 100 mg Enoxaparin Sodium (Lovenox) 40 mg SC DAILY [facility] PRN Reason: Protocol Last Admin: 06/02/17 08:59 Dose: 40 mg Hydromorphone HCl (Dilaudid) 0.5 mg IVP Q6H PRN PRN Reason: Pain, severe (8-10) Ciprofloxacin (Cipro 400mg/200ml Dsw) 400 mg in 200 mls @ 200 mls/hr IVPB Q12 [facility] PRN Reason: Protocol Last Admin: 06/02/17 21:39 Dose: 200 mls/hr Metronidazole (Flagyl 500mg/100ml Ns) 100 mls @ 100 mls/hr IVPB Q8 [facility] PRN Reason: Protocol Last Admin: 06/03/17 01:09 Dose: 100 mls/hr Potassium Chloride/Dextrose/Sod Cl (Potassium Chl 20 Meq In D5-1/2ns) 1,000 mls @ 120 mls/hr IV .Q8H20M [facility] Stop: 06/03/17 08:46 Last Admin: 06/03/17 02:40 Dose: 120 mls/hr Ketorolac Tromethamine (Toradol) 15 mg PO Q6 PRN PRN Reason: Pain, moderate (4-7) Last Admin: 06/02/17 21:46 Dose: 15 mg - Labs Labs: 06/03/17 05:55 06/03/17 05:55 PT 12.7 Seconds (9.8-13.1) 06/01/17 18:24 INR 1.1 (0.9-1.2) 06/01/17 18:24 APTT 27.0 Seconds (25.6-37.1) 06/01/17 18:24 - Constitutional Appears: Well, Non-toxic, No Acute Distress - Head Exam Head Exam: ATRAUMATIC - Eye Exam Eye Exam: Normal appearance - ENT Exam ENT Exam: Normal Exam - Neck Exam Neck Exam: Full ROM - Respiratory Exam Respiratory Exam: NORMAL BREATHING PATTERN - GI/Abdominal Exam GI & Abdominal Exam: Soft, Tenderness. absent: Rigid, Hernia, Mass Additional comments: Mild tenderness on palpation of the suprapubic region Assessment and Plan - Assessment and Plan (Free Text) Assessment: 76F with diveritulitis with localized infection Plan: NPO IV abx serial abdominal exams pain control PRN IVF will need colonospcoy after resolution D/W Dr. Barry <Pj Rosales - Last Filed: 06/03/17 12:11> Subjective - Date & Time of Evaluation Time of Evaluation: 12:05 - Subjective Subjective: Patient was seen and examined at the bedside. Agree with resident's note above. Objective - Vital Signs/Intake and Output Vital Signs (last 24 hours): Temp Pulse Resp BP Pulse Ox 98.5 F 77 20 116/75 96 06/03/17 07:49 06/03/17 07:49 06/03/17 07:49 06/03/17 07:49 06/03/17 07:49 Intake and Output: 06/03/17 06/03/17 06:59 18:59 Intake Total 1440 Balance 1440 - Medications Medications: Current Medications Docusate Sodium (Colace) 100 mg PO DAILY [facility] Last Admin: 06/03/17 09:52 Dose: 100 mg Enoxaparin Sodium (Lovenox) 40 mg SC DAILY [facility] PRN Reason: Protocol Last Admin: 06/03/17 09:54 Dose: 40 mg Hydromorphone HCl (Dilaudid) 0.5 mg IVP Q6H PRN PRN Reason: Pain, severe (8-10) Ciprofloxacin (Cipro 400mg/200ml Dsw) 400 mg in 200 mls @ 200 mls/hr IVPB Q12 [facility] PRN Reason: Protocol Last Admin: 06/03/17 09:50 Dose: 200 mls/hr Metronidazole (Flagyl 500mg/100ml Ns) 100 mls @ 100 mls/hr IVPB Q8 [facility] PRN Reason: Protocol Last Admin: 06/03/17 09:54 Dose: 100 mls/hr Ketorolac Tromethamine (Toradol) 15 mg PO Q6 PRN PRN Reason: Pain, moderate (4-7) Last Admin: 06/02/17 21:46 Dose: 15 mg - Labs Labs: 06/03/17 05:55 06/03/17 05:55 PT 12.7 Seconds (9.8-13.1) 06/01/17 18:24 INR 1.1 (0.9-1.2) 06/01/17 18:24 APTT 27.0 Seconds (25.6-37.1) 06/01/17 18:24 Assessment and Plan - Assessment and Plan (Free Text) Plan: - Start clear liquid diet - pain control - IV fluids - Continue antibiotics - Repeat labs in am - Will follow
--- NOTE | 2017-06-03 09:03 | CP.PCM.PN ---
Subjective - Date & Time of Evaluation Date of Evaluation: 06/03/17 Time of Evaluation: 07:00 - Subjective Subjective: Pt seen and evaluated at bedside with attending; had no acute events overnight, was resting comfortably in bed. Still has some mild abdominal pain/discomfort, especially on palpation. Still NPO, receiving fluids, and antibiotics. Objective - Vital Signs/Intake and Output Vital Signs (last 24 hours): Temp Pulse Resp BP Pulse Ox 98.5 F 77 20 116/75 96 06/03/17 07:49 06/03/17 07:49 06/03/17 07:49 06/03/17 07:49 06/03/17 07:49 Intake and Output: 06/03/17 06/03/17 06:59 18:59 Intake Total 1440 Balance 1440 - Medications Medications: Current Medications Docusate Sodium (Colace) 100 mg PO DAILY [facility] Last Admin: 06/02/17 12:18 Dose: 100 mg Enoxaparin Sodium (Lovenox) 40 mg SC DAILY [facility] PRN Reason: Protocol Last Admin: 06/02/17 08:59 Dose: 40 mg Hydromorphone HCl (Dilaudid) 0.5 mg IVP Q6H PRN PRN Reason: Pain, severe (8-10) Ciprofloxacin (Cipro 400mg/200ml Dsw) 400 mg in 200 mls @ 200 mls/hr IVPB Q12 [facility] PRN Reason: Protocol Last Admin: 06/02/17 21:39 Dose: 200 mls/hr Metronidazole (Flagyl 500mg/100ml Ns) 100 mls @ 100 mls/hr IVPB Q8 [facility] PRN Reason: Protocol Last Admin: 06/03/17 01:09 Dose: 100 mls/hr Ketorolac Tromethamine (Toradol) 15 mg PO Q6 PRN PRN Reason: Pain, moderate (4-7) Last Admin: 06/02/17 21:46 Dose: 15 mg - Labs Labs: 06/03/17 05:55 06/03/17 05:55 PT 12.7 Seconds (9.8-13.1) 06/01/17 18:24 INR 1.1 (0.9-1.2) 06/01/17 18:24 APTT 27.0 Seconds (25.6-37.1) 06/01/17 18:24 - Constitutional Appears: Non-toxic, No Acute Distress - Head Exam Head Exam: NORMAL INSPECTION - Eye Exam Eye Exam: Normal appearance - Respiratory Exam Respiratory Exam: Decreased Breath Sounds (slightly diminished, but clear), NORMAL BREATHING PATTERN - Cardiovascular Exam Cardiovascular Exam: REGULAR RHYTHM, +S1, +S2 - GI/Abdominal Exam GI & Abdominal Exam: Soft, Tenderness (diffuse but more pronounced at right, periumbilical, epigastric), Normal Bowel Sounds - Extremities Exam Extremities Exam: Normal Inspection - Back Exam Back Exam: NORMAL INSPECTION - Neurological Exam Neurological Exam: Alert, Awake, Oriented x3 - Psychiatric Exam Psychiatric exam: Normal Mood - Skin Skin Exam: Dry, Intact, Warm Assessment and Plan - Assessment and Plan (Free Text) Plan: #) Perforated Diverticulitis - Surgery consult (Dr. Barry)- no surgical intervention.Continue with serial abdominal exams, colonoscopy after resolution - GI consult: Dr. Wiggins - ID consult: Dr. Green - Pain control: Toradol 15 mg IVP for moderate pain, 0.5 mg Dilaudid prn severe pain - Infection: WBC trending down, 10.8 today from 13.5 - Ciprofloxacin 400 mg IV q12/Flagyl 500 mg IV q8 - Maintenance fluids: D5W 1/2 NS + 20 mEq K+ - Colace 100 mg PO daily - CT abd/pel: 3 x 1.6 cm abscess in anterior pelvis from either marked enteritis involving pelvic small bowel loop associated with focal/contained perforation vs sigmoid diverticulitis associated with a focal/contained perforation. Partial SBO secondary to thick walled pelvic small bowel loop wall thickening could be due to enteritis vs reactive wall thickening from nearby sigmoid diverticulitis. Fx of left ninth posterior rib. - Blood cx pending - NPO - monitor vitals - repeat AM labs - PT/OT eval and treat #) Sepsis, now resolved - Pt presented as meeting sepsis criteria: had HR above 90, WBC above 12,000, and suspected source of infection - Likely due to perforated diverticulitis - Resolved at this time; WBC down to 10.8, HR 77 #) Prophylaxis - Lovenox 40mg SC QD - SCDs - Ambulation #) Code Status: -full code
[2017-06-03] MEDS: Ciprofloxacin 400mg/200ml D5W 400 MG/200 ML BAG IVPB SCH ×2 (09:50→20:48)
[2017-06-03] MEDS: metroNIDAZOLE 500mg/100ml NS 100 ML IV STA (09:53)
[2017-06-03] MEDS: Enoxaparin 40 mg Syringe SC SCH (09:54)
--- NOTE | 2017-06-03 12:31 | CP.PCM.PN ---
Subjective - Date & Time of Evaluation Date of Evaluation: 06/03/17 Time of Evaluation: 12:28 - Subjective Subjective: I D NOTE CHART REVIEWED HAVE ADDED DOXYCYCLINE TO RX FULL CONSULT to follow Objective - Vital Signs/Intake and Output Vital Signs (last 24 hours): Temp Pulse Resp BP Pulse Ox 98.5 F 77 20 116/75 96 06/03/17 07:49 06/03/17 07:49 06/03/17 07:49 06/03/17 07:49 06/03/17 07:49 Intake and Output: 06/03/17 06/03/17 06:59 18:59 Intake Total 1440 Balance 1440 - Medications Medications: Current Medications Docusate Sodium (Colace) 100 mg PO DAILY [facility] Last Admin: 06/03/17 09:52 Dose: 100 mg Enoxaparin Sodium (Lovenox) 40 mg SC DAILY [facility] PRN Reason: Protocol Last Admin: 06/03/17 09:54 Dose: 40 mg Hydromorphone HCl (Dilaudid) 0.5 mg IVP Q6H PRN PRN Reason: Pain, severe (8-10) Ciprofloxacin (Cipro 400mg/200ml Dsw) 400 mg in 200 mls @ 200 mls/hr IVPB Q12 [facility] PRN Reason: Protocol Last Admin: 06/03/17 09:50 Dose: 200 mls/hr Metronidazole (Flagyl 500mg/100ml Ns) 100 mls @ 100 mls/hr IVPB Q8 [facility] PRN Reason: Protocol Last Admin: 06/03/17 09:54 Dose: 100 mls/hr Doxycycline Hyclate 100 mg/ (Sodium Chloride) 100 mls @ 100 mls/hr IVPB Q12 [facility] PRN Reason: Protocol Ketorolac Tromethamine (Toradol) 10 mg PO Q6 PRN PRN Reason: Pain, moderate (4-7) - Labs Labs: 06/03/17 05:55 06/03/17 05:55 PT 12.7 Seconds (9.8-13.1) 06/01/17 18:24 INR 1.1 (0.9-1.2) 06/01/17 18:24 APTT 27.0 Seconds (25.6-37.1) 06/01/17 18:24
[2017-06-04] MEDS: metroNIDAZOLE 500mg/100ml NS 100 ML IVPB SCH ×3 (01:34→16:23)
--- NOTE | 2017-06-04 05:31 | CP.PCM.PN ---
<Ej Nava - Last Filed: 06/04/17 05:32> Subjective - Date & Time of Evaluation Date of Evaluation: 06/04/17 Time of Evaluation: 05:29 - Subjective Subjective: SURGERY PROGRESS NOTE FOR DR. ROSALES 76F seen and examined at bedside. Patient doing well, denies pain, denies nausea or vomiting. Admits to diarrhea. She is tolerating liquid diet. Objective - Vital Signs/Intake and Output Vital Signs (last 24 hours): Temp Pulse Resp BP Pulse Ox 98.4 F 77 18 106/69 98 06/03/17 23:36 06/03/17 23:36 06/03/17 23:36 06/03/17 23:36 06/03/17 23:36 - Medications Medications: Current Medications Docusate Sodium (Colace) 100 mg PO DAILY [facility] Last Admin: 06/03/17 09:52 Dose: 100 mg Enoxaparin Sodium (Lovenox) 40 mg SC DAILY [facility] PRN Reason: Protocol Last Admin: 06/03/17 09:54 Dose: 40 mg Hydromorphone HCl (Dilaudid) 0.5 mg IVP Q6H PRN PRN Reason: Pain, severe (8-10) Ciprofloxacin (Cipro 400mg/200ml Dsw) 400 mg in 200 mls @ 200 mls/hr IVPB Q12 [facility] PRN Reason: Protocol Last Admin: 06/03/17 20:48 Dose: 200 mls/hr Metronidazole (Flagyl 500mg/100ml Ns) 100 mls @ 100 mls/hr IVPB Q8 [facility] PRN Reason: Protocol Last Admin: 06/04/17 01:34 Dose: 100 mls/hr Doxycycline Hyclate 100 mg/ (Sodium Chloride) 100 mls @ 100 mls/hr IVPB Q12 [facility] PRN Reason: Protocol Last Admin: 06/03/17 20:41 Dose: 100 mls/hr Ketorolac Tromethamine (Toradol) 10 mg PO Q6 PRN PRN Reason: Pain, moderate (4-7) - Labs Labs: 06/03/17 05:55 06/03/17 05:55 PT 12.7 Seconds (9.8-13.1) 06/01/17 18:24 INR 1.1 (0.9-1.2) 06/01/17 18:24 APTT 27.0 Seconds (25.6-37.1) 06/01/17 18:24 - Constitutional Appears: Well, Non-toxic, No Acute Distress - Respiratory Exam Respiratory Exam: Clear to Ausculation Bilateral, NORMAL BREATHING PATTERN - Cardiovascular Exam Cardiovascular Exam: REGULAR RHYTHM, +S1, +S2 - GI/Abdominal Exam GI & Abdominal Exam: Soft, Tenderness (mildly tender to palpation in LLQ). absent: Distended, Firm, Guarding, Rigid, Rebound - Neurological Exam Neurological Exam: Alert, Awake - Psychiatric Exam Psychiatric exam: Normal Affect, Normal Mood - Skin Skin Exam: Dry, Intact, Normal Color, Warm Assessment and Plan - Assessment and Plan (Free Text) Assessment: 76F with diverticulitis with tiny abscess Plan: - poss advance diet - pain control - IV fluids - Continue antibiotics Further recs discuss with Dr. otis Nava, PGY2 <Pj Rosales - Last Filed: 06/04/17 16:30> Subjective - Date & Time of Evaluation Time of Evaluation: 15:50 - Subjective Subjective: Patient was seen and examined at the bedside. Agree with resident's note above. Objective - Vital Signs/Intake and Output Vital Signs (last 24 hours): Temp Pulse Resp BP Pulse Ox 98 F 9 L 18 111/65 100 06/04/17 15:44 06/04/17 15:44 06/04/17 15:44 06/04/17 15:44 06/04/17 15:44 - Medications Medications: Current Medications Enoxaparin Sodium (Lovenox) 40 mg SC DAILY [facility] PRN Reason: Protocol Last Admin: 06/04/17 10:31 Dose: 40 mg Ciprofloxacin (Cipro 400mg/200ml Dsw) 400 mg in 200 mls @ 200 mls/hr IVPB Q12 [facility] PRN Reason: Protocol Last Admin: 06/04/17 10:29 Dose: 200 mls/hr Metronidazole (Flagyl 500mg/100ml Ns) 100 mls @ 100 mls/hr IVPB Q8 [facility] PRN Reason: Protocol Last Admin: 06/04/17 16:23 Dose: 100 mls/hr Doxycycline Hyclate 100 mg/ (Sodium Chloride) 100 mls @ 100 mls/hr IVPB Q12 [facility] PRN Reason: Protocol Last Admin: 06/04/17 13:51 Dose: 100 mls/hr - Labs Labs: 06/04/17 05:30 06/04/17 05:30 PT 12.7 Seconds (9.8-13.1) 06/01/17 18:24 INR 1.1 (0.9-1.2) 06/01/17 18:24 APTT 27.0 Seconds (25.6-37.1) 06/01/17 18:24 Assessment and Plan - Assessment and Plan (Free Text) Plan: - Start low residue diet - pain control - Antibiotics as per ID - Plan for repeat CT scan on 06/06/17
[2017-06-04 06:38] LABS: BASO % 0.3 % (0.0-2.0); EOS # 0.6 K/uL (0.0-0.7); EOS % 6.8 % (0.0-4.0); HEMOGLOBIN 11.1 g/dL (12.0-16.0); LYMPH # 0.9 K/uL (1.0-4.3); LYMPH % 11.1 % (20.0-40.0); MEAN CELL VOLUME 103.8 fl (81.0-99.0); MEAN CORPUSCULAR HEMOGLOBIN 34.9 pg (27.0-31.0); MEAN CORPUSCULAR HGB CONC 33.6 g/dL (33.0-37.0); MEAN PLATELET VOLUME 8.2 fl (7.2-11.7); MONO # 0.7 K/uL (0.0-0.8); MONO % 8.1 % (0.0-10.0); NEUT # 6.1 K/uL (1.8-7.0); NEUT % 73.7 % (50.0-75.0); NRBC % 0.1 % (0.0-0.0); RBC 3.19 Mil/uL (3.80-5.20); RED CELL DISTRIBUTION WIDTH 12.5 % (11.5-14.5); WHITE BLOOD COUNT 8.3 K/uL (4.8-10.8)
[2017-06-04 07:08] LABS: BLOOD UREA NITROGEN 10 mg/dl (7-17); CALCIUM 8.7 mg/dL (8.4-10.2); GFR AFRICAN-AMERICAN > 60; GFR NON-AFRICAN AMERICAN > 60
[2017-06-04] MEDS: Ciprofloxacin 400mg/200ml D5W 400 MG/200 ML BAG IVPB SCH ×2 (10:29→20:24)
[2017-06-04] MEDS: Enoxaparin 40 mg Syringe SC SCH (10:31)
--- NOTE | 2017-06-04 15:49 | CP.PCM.PN ---
Subjective - Date & Time of Evaluation Date of Evaluation: 06/04/17 Time of Evaluation: 15:46 - Subjective Subjective: I D NOTE WBC:8.5 HAS DIAHARREA,SOME PAIN WOULD CONTINUE IV ANTIBIOTIC REGIMEN REPEAT CT SCAN EARLY NEXT WEEK HAVE DISCUSSED c FP RESIDENT AND SURGERY Objective - Vital Signs/Intake and Output Vital Signs (last 24 hours): Temp Pulse Resp BP Pulse Ox 98 F 9 L 18 111/65 100 06/04/17 15:44 06/04/17 15:44 06/04/17 15:44 06/04/17 15:44 06/04/17 15:44 - Medications Medications: Current Medications Enoxaparin Sodium (Lovenox) 40 mg SC DAILY [facility] PRN Reason: Protocol Last Admin: 06/04/17 10:31 Dose: 40 mg Ciprofloxacin (Cipro 400mg/200ml Dsw) 400 mg in 200 mls @ 200 mls/hr IVPB Q12 [facility] PRN Reason: Protocol Last Admin: 06/04/17 10:29 Dose: 200 mls/hr Metronidazole (Flagyl 500mg/100ml Ns) 100 mls @ 100 mls/hr IVPB Q8 [facility] PRN Reason: Protocol Last Admin: 06/04/17 10:30 Dose: 100 mls/hr Doxycycline Hyclate 100 mg/ (Sodium Chloride) 100 mls @ 100 mls/hr IVPB Q12 [facility] PRN Reason: Protocol Last Admin: 06/04/17 13:51 Dose: 100 mls/hr - Labs Labs: 06/04/17 05:30 06/04/17 05:30 PT 12.7 Seconds (9.8-13.1) 06/01/17 18:24 INR 1.1 (0.9-1.2) 06/01/17 18:24 APTT 27.0 Seconds (25.6-37.1) 06/01/17 18:24
[2017-06-05 07:11] LABS: BASO % 0.3 % (0.0-2.0); EOS # 0.4 K/uL (0.0-0.7); EOS % 4.9 % (0.0-4.0); HEMOGLOBIN 11.2 g/dL (12.0-16.0); LYMPH # 1.1 K/uL (1.0-4.3); LYMPH % 14.9 % (20.0-40.0); MEAN CELL VOLUME 103.2 fl (81.0-99.0); MEAN CORPUSCULAR HEMOGLOBIN 35.2 pg (27.0-31.0); MEAN CORPUSCULAR HGB CONC 34.1 g/dL (33.0-37.0); MEAN PLATELET VOLUME 8.5 fl (7.2-11.7); MONO # 0.8 K/uL (0.0-0.8); MONO % 10.8 % (0.0-10.0); NEUT # 5.1 K/uL (1.8-7.0); NEUT % 69.1 % (50.0-75.0); RBC 3.18 Mil/uL (3.80-5.20); RED CELL DISTRIBUTION WIDTH 12.4 % (11.5-14.5); WHITE BLOOD COUNT 7.4 K/uL (4.8-10.8)
--- NOTE | 2017-06-05 08:27 | CP.PCM.PN ---
Subjective - Date & Time of Evaluation Date of Evaluation: 06/05/17 Time of Evaluation: 09:45 - Subjective Subjective: Pt seen and evaluated at bedside this am; no acute events overnight. Tolerating PO diet. Objective - Vital Signs/Intake and Output Vital Signs (last 24 hours): Temp Pulse Resp BP Pulse Ox 98.0 F 89 18 144/81 97 06/05/17 07:53 06/05/17 07:53 06/05/17 07:53 06/05/17 07:53 06/05/17 07:53 - Medications Medications: Current Medications Ciprofloxacin (Cipro) 500 mg PO Q12 [facility] PRN Reason: Protocol Doxycycline Hyclate (Doryx) 100 mg PO Q12 [facility] PRN Reason: Protocol Last Admin: 06/05/17 00:14 Dose: 100 mg Enoxaparin Sodium (Lovenox) 40 mg SC DAILY [facility] PRN Reason: Protocol Last Admin: 06/04/17 10:31 Dose: 40 mg Metronidazole (Flagyl) 500 mg PO Q8 [facility] PRN Reason: Protocol Last Admin: 06/05/17 00:14 Dose: 500 mg - Labs Labs: 06/05/17 05:30 06/04/17 05:30 PT 12.7 Seconds (9.8-13.1) 06/01/17 18:24 INR 1.1 (0.9-1.2) 06/01/17 18:24 APTT 27.0 Seconds (25.6-37.1) 06/01/17 18:24 - Constitutional Appears: Non-toxic - Head Exam Head Exam: ATRAUMATIC, NORMAL INSPECTION - Eye Exam Eye Exam: Normal appearance - ENT Exam ENT Exam: Mucous Membranes Moist - Respiratory Exam Respiratory Exam: Clear to Ausculation Bilateral, NORMAL BREATHING PATTERN. absent: Wheezes, Respiratory Distress - Cardiovascular Exam Cardiovascular Exam: REGULAR RHYTHM, +S1, +S2 - GI/Abdominal Exam GI & Abdominal Exam: Soft, Tenderness, Normal Bowel Sounds Additional comments: very mild, significantly changed from prior exam - Extremities Exam Extremities Exam: Full ROM, Normal Inspection. absent: Calf Tenderness - Neurological Exam Neurological Exam: Alert, Awake, Oriented x3 - Skin Skin Exam: Dry, Intact, Normal Color, Warm Assessment and Plan - Assessment and Plan (Free Text) Plan: #) Perforated Diverticulitis - Surgery consult (Dr. Barry/Connie)- no surgical intervention. Continue with antibiotics. - Repeat CT in am - Ciprofloxacin 500 mg q12, Flagyl 500 mg q8 - GI consult: Dr. Wiggins - ID consult: Dr. Green - added doxycycline 100 mg q12 - Tolerating PO #) Sepsis, now resolved - Pt presented as meeting sepsis criteria: had HR above 90, WBC above 12,000, and suspected source of infection - Likely due to perforated diverticulitis - Resolved at this time #) Prophylaxis - Lovenox 40mg SC QD - SCDs - Ambulation
[2017-06-05] MEDS: Enoxaparin 40 mg Syringe SC SCH (08:36)
--- NOTE | 2017-06-05 10:04 | CP.PCM.PN ---
<Ej Nava - Last Filed: 06/05/17 10:01> Subjective - Date & Time of Evaluation Date of Evaluation: 06/05/17 Time of Evaluation: 10:01 - Subjective Subjective: SURGERY PROGRESS NOTE FOR DR. ROSALES 76F seen and examined at bedside. Patient denies pain, nausea, vomiting, fevers , chills. Admits to regular bowel function. Tolerating diet. Objective - Vital Signs/Intake and Output Vital Signs (last 24 hours): Temp Pulse Resp BP Pulse Ox 98.0 F 89 18 144/81 97 06/05/17 07:53 06/05/17 07:53 06/05/17 07:53 06/05/17 07:53 06/05/17 07:53 - Medications Medications: Current Medications Ciprofloxacin (Cipro) 500 mg PO Q12 PRASHANT PRN Reason: Protocol Last Admin: 06/05/17 08:35 Dose: 500 mg Doxycycline Hyclate (Doryx) 100 mg PO Q12 PRASHANT PRN Reason: Protocol Last Admin: 06/05/17 08:35 Dose: 100 mg Enoxaparin Sodium (Lovenox) 40 mg SC DAILY PRASHANT PRN Reason: Protocol Last Admin: 06/05/17 08:36 Dose: 40 mg Metronidazole (Flagyl) 500 mg PO Q8 PRASHANT PRN Reason: Protocol Last Admin: 06/05/17 08:35 Dose: 500 mg - Labs Labs: 06/05/17 05:30 06/04/17 05:30 PT 12.7 Seconds (9.8-13.1) 06/01/17 18:24 INR 1.1 (0.9-1.2) 06/01/17 18:24 APTT 27.0 Seconds (25.6-37.1) 06/01/17 18:24 - Constitutional Appears: Well, Non-toxic, No Acute Distress - Respiratory Exam Respiratory Exam: Clear to Ausculation Bilateral, NORMAL BREATHING PATTERN - Cardiovascular Exam Cardiovascular Exam: REGULAR RHYTHM, +S1, +S2 - GI/Abdominal Exam GI & Abdominal Exam: Soft. absent: Distended, Firm, Guarding, Rigid, Tenderness , Rebound - Neurological Exam Neurological Exam: Alert, Awake - Psychiatric Exam Psychiatric exam: Normal Affect, Normal Mood - Skin Skin Exam: Dry, Intact, Normal Color, Warm Assessment and Plan - Assessment and Plan (Free Text) Assessment: 76F presents with Diverticulitis and abscess on CT Plan: - Continue regular diet - CT scan tomorrow with PO/IV contrast Further recs discuss with Dr. Connie Nava, PGY2 <Pj Rosales - Last Filed: 06/05/17 14:24> Subjective - Date & Time of Evaluation Time of Evaluation: 13:50 - Subjective Subjective: Patient was seen and examined at the bedside. Agree with resident's note above. Objective - Vital Signs/Intake and Output Vital Signs (last 24 hours): Temp Pulse Resp BP Pulse Ox 98.0 F 89 18 144/81 97 06/05/17 07:53 06/05/17 07:53 06/05/17 07:53 06/05/17 07:53 06/05/17 07:53 - Medications Medications: Current Medications Ciprofloxacin (Cipro) 500 mg PO Q12 PRASHANT PRN Reason: Protocol Last Admin: 06/05/17 08:35 Dose: 500 mg Doxycycline Hyclate (Doryx) 100 mg PO Q12 PRASHANT PRN Reason: Protocol Last Admin: 06/05/17 08:35 Dose: 100 mg Enoxaparin Sodium (Lovenox) 40 mg SC DAILY PRASHANT PRN Reason: Protocol Last Admin: 06/05/17 08:36 Dose: 40 mg Metronidazole (Flagyl) 500 mg PO Q8 PRASHANT PRN Reason: Protocol Last Admin: 06/05/17 08:35 Dose: 500 mg - Labs Labs: 06/05/17 05:30 06/04/17 05:30 PT 12.7 Seconds (9.8-13.1) 06/01/17 18:24 INR 1.1 (0.9-1.2) 06/01/17 18:24 APTT 27.0 Seconds (25.6-37.1) 06/01/17 18:24 Assessment and Plan - Assessment and Plan (Free Text) Plan: - Continue low residue diet - Pain control - Repeat CT scan tomorrow - Antibiotics as per ID - Repeat labs in am - Will follow
--- NOTE | 2017-06-05 15:21 | CP.PCM.PN ---
Subjective - Date & Time of Evaluation Date of Evaluation: 06/05/17 Time of Evaluation: 15:20 - Subjective Subjective: doing well Objective - Vital Signs/Intake and Output Vital Signs (last 24 hours): Temp Pulse Resp BP Pulse Ox 98.0 F 89 18 144/81 97 06/05/17 07:53 06/05/17 07:53 06/05/17 07:53 06/05/17 07:53 06/05/17 07:53 - Medications Medications: Current Medications Ciprofloxacin (Cipro) 500 mg PO Q12 PRASHANT PRN Reason: Protocol Last Admin: 06/05/17 08:35 Dose: 500 mg Doxycycline Hyclate (Doryx) 100 mg PO Q12 PRASHANT PRN Reason: Protocol Last Admin: 06/05/17 08:35 Dose: 100 mg Enoxaparin Sodium (Lovenox) 40 mg SC DAILY PRASHANT PRN Reason: Protocol Last Admin: 06/05/17 08:36 Dose: 40 mg Metronidazole (Flagyl) 500 mg PO Q8 PRASHANT PRN Reason: Protocol Last Admin: 06/05/17 08:35 Dose: 500 mg - Labs Labs: 06/05/17 05:30 06/04/17 05:30 PT 12.7 Seconds (9.8-13.1) 06/01/17 18:24 INR 1.1 (0.9-1.2) 06/01/17 18:24 APTT 27.0 Seconds (25.6-37.1) 06/01/17 18:24 - Neck Exam Neck Exam: Normal Inspection - Respiratory Exam Respiratory Exam: NORMAL BREATHING PATTERN - Cardiovascular Exam Cardiovascular Exam: REGULAR RHYTHM - GI/Abdominal Exam GI & Abdominal Exam: Soft, Normal Bowel Sounds Assessment and Plan - Assessment and Plan (Free Text) Assessment: 76 yo female with complicated diverticulitis abx ct in am dc planning if CT improved colonoscopy in 8 weeks
--- NOTE | 2017-06-05 22:25 | CP.PCM.PN ---
Subjective - Date & Time of Evaluation Date of Evaluation: 06/04/17 Time of Evaluation: 08:10 - Subjective Subjective: 76F seen and examined at bedside with attending. Pt reports improved appetite, minimal pain, denies N/V, and reports multiple episodes of soft stools. Objective - Vital Signs/Intake and Output Vital Signs (last 24 hours): Temp Pulse Resp BP Pulse Ox 36.8 C 74 19 136/80 96 06/05/17 15:57 06/05/17 15:57 06/05/17 15:57 06/05/17 15:57 06/05/17 15:57 - Medications Medications: Current Medications Ciprofloxacin (Cipro) 500 mg PO Q12 PRASHANT PRN Reason: Protocol Last Admin: 06/05/17 21:27 Dose: 500 mg Doxycycline Hyclate (Doryx) 100 mg PO Q12 PRASHANT PRN Reason: Protocol Last Admin: 06/05/17 21:27 Dose: 100 mg Enoxaparin Sodium (Lovenox) 40 mg SC DAILY PRASHANT PRN Reason: Protocol Last Admin: 06/05/17 08:36 Dose: 40 mg Hydrocortisone (Cortizone 1% Cream) 1 applic TOP BID PRASHANT Last Admin: 06/05/17 18:42 Dose: 1 applic Metronidazole (Flagyl) 500 mg PO Q8 PRASHANT PRN Reason: Protocol Last Admin: 06/05/17 16:41 Dose: 500 mg - Labs Labs: 06/05/17 05:30 06/04/17 05:30 PT 12.7 Seconds (9.8-13.1) 06/01/17 18:24 INR 1.1 (0.9-1.2) 06/01/17 18:24 APTT 27.0 Seconds (25.6-37.1) 06/01/17 18:24 - Constitutional Appears: Well, Non-toxic - Head Exam Head Exam: NORMAL INSPECTION - Eye Exam Eye Exam: Normal appearance - ENT Exam ENT Exam: Mucous Membranes Moist - Respiratory Exam Respiratory Exam: Clear to Ausculation Bilateral, NORMAL BREATHING PATTERN - Cardiovascular Exam Cardiovascular Exam: REGULAR RHYTHM, +S1, +S2 - GI/Abdominal Exam GI & Abdominal Exam: Soft, Normal Bowel Sounds - Extremities Exam Extremities Exam: Full ROM, Normal Capillary Refill, Normal Inspection - Neurological Exam Neurological Exam: Alert, Awake - Psychiatric Exam Psychiatric exam: Normal Affect, Normal Mood - Skin Skin Exam: Dry, Warm Assessment and Plan - Assessment and Plan (Free Text) Assessment: 76F admitted for acute onset first episode of diverticulitis improving. Plan: - Surgery Consult: Shane Rodríguez Diet - GI Consult: pending - ID Consult: pending - multiple soft stools, will hold colace - DVT prophyalxis: Lovenox
[2017-06-06 06:49] LABS: BASO % 0.6 % (0.0-2.0); EOS # 0.3 K/uL (0.0-0.7); EOS % 4.6 % (0.0-4.0); HEMOGLOBIN 10.9 g/dL (12.0-16.0); LYMPH # 1.3 K/uL (1.0-4.3); LYMPH % 17.2 % (20.0-40.0); MEAN CELL VOLUME 103.6 fl (81.0-99.0); MEAN CORPUSCULAR HEMOGLOBIN 34.7 pg (27.0-31.0); MEAN CORPUSCULAR HGB CONC 33.5 g/dL (33.0-37.0); MEAN PLATELET VOLUME 8.4 fl (7.2-11.7); MONO # 0.9 K/uL (0.0-0.8); MONO % 12.5 % (0.0-10.0); NEUT # 4.9 K/uL (1.8-7.0); NEUT % 65.1 % (50.0-75.0); RBC 3.15 Mil/uL (3.80-5.20); RED CELL DISTRIBUTION WIDTH 12.3 % (11.5-14.5); WHITE BLOOD COUNT 7.6 K/uL (4.8-10.8)
[2017-06-06 08:06] LABS: BLOOD UREA NITROGEN 14 mg/dl (7-17); CALCIUM 8.9 mg/dL (8.4-10.2); GFR AFRICAN-AMERICAN > 60; GFR NON-AFRICAN AMERICAN > 60
[2017-06-06] MEDS ORDERED: Iohexol 240 (10 ml) PO ONE (08:15)
[2017-06-06] MEDS ORDERED: Iohexol 240 (50 ml) PO ONE (08:16)
[2017-06-06] MEDS ORDERED: Iohexol 240 (50 ml) ONE (08:21)
--- NOTE | 2017-06-06 08:54 | CON ---
DATE: 06/03/2017 REFERRING PHYSICIAN: Jerome Poole MD REASON FOR CONSULTATION: Diverticulitis. HISTORY OF PRESENT ILLNESS: This is a very ceci 76-year-old female with history of asthma, endoscopy for the past couple 3 days, some worsening pain, although this has improved. The patient . Currently lying in bed comfortably, in no apparent distress. PAST MEDICAL HISTORY: As above. PAST SURGICAL HISTORY: As above. MEDICATIONS AND ALLERGIES: Have been reviewed. REVIEW OF SYSTEMS: All other systems have been reviewed and negative apart from the HPI. PHYSICAL EXAMINATION: GENERAL: Pleasant, elderly-appearing female lying in bed comfortably, in no apparent distress. VITAL SIGNS: Here in the hospital, grossly unremarkable. HEENT: Head is normocephalic and atraumatic. Eyes, pupils are equally reactive to light bilaterally. No conjunctival pallor or icterus. NECK: Supple. Normal range of motion. No lymphadenopathy appreciated. LUNGS: Coarse breath sounds bilaterally. HEART: S1 and S2, regular rate and rhythm. No murmurs appreciated. ABDOMEN: Soft and nontender. Some tenderness in the left lower quadrant. No rebound. No guarding. RECTAL: Deferred. EXTREMITIES: Pulses present bilaterally. SKIN: Warm, dry and intact. NEUROLOGIC: A and O x3. LABORATORY DATA: Labs have been reviewed. WBC is 10.8, which is down 13.5, hemoglobin stable. CAT scan of the abdomen and pelvis showed 1.6-cm airway collection, fluid air, likely pelvic abscess, possible fistula, bladder. There is sigmoid diverticulitis, possible focal perforation and partial as well. ASSESSMENT AND PLAN: This is a 76-year-old female with diverticulitis, perforation, and possible . From GI standpoint n.p.o. for now antibiotics. We will need colonoscopy at some point. Thank you for the consult. Wojciech Wiggins MD/ PhD cc: Jerome Poole MD
--- NOTE | 2017-06-06 09:19 | CP.PCM.PN ---
<Siomara Kingsley - Last Filed: 06/06/17 09:17> Subjective - Date & Time of Evaluation Date of Evaluation: 06/06/17 Time of Evaluation: 09:17 - Subjective Subjective: SURGERY PROGRESS NOTE FOR DR. ROSALES 76F seen and examined at bedside. Was seen walking in the hallways prior to be seen in the room. Denies of any acute overnight events. Denies of any pain today. Patient denies pain, nausea, vomiting, fevers, chills. Admits to regular bowel function. Tolerating diet. Objective - Vital Signs/Intake and Output Vital Signs (last 24 hours): Temp Pulse Resp BP Pulse Ox 97.9 F 97 H 20 113/70 96 06/06/17 07:55 06/06/17 07:55 06/06/17 07:55 06/06/17 07:55 06/06/17 07:55 - Medications Medications: Current Medications Ciprofloxacin (Cipro) 500 mg PO Q12 PRASHANT PRN Reason: Protocol Last Admin: 06/05/17 21:27 Dose: 500 mg Doxycycline Hyclate (Doryx) 100 mg PO Q12 PRASHANT PRN Reason: Protocol Last Admin: 06/05/17 21:27 Dose: 100 mg Enoxaparin Sodium (Lovenox) 40 mg SC DAILY PRASHANT PRN Reason: Protocol Last Admin: 06/05/17 08:36 Dose: 40 mg Hydrocortisone (Cortizone 1% Cream) 1 applic TOP BID [facility] Last Admin: 06/05/17 18:42 Dose: 1 applic Metronidazole (Flagyl) 500 mg PO Q8 PRASHANT PRN Reason: Protocol Last Admin: 06/06/17 00:36 Dose: 500 mg - Labs Labs: 06/06/17 06:20 06/06/17 06:20 PT 12.7 Seconds (9.8-13.1) 06/01/17 18:24 INR 1.1 (0.9-1.2) 06/01/17 18:24 APTT 27.0 Seconds (25.6-37.1) 06/01/17 18:24 - Constitutional Appears: Well, Non-toxic, No Acute Distress - Head Exam Head Exam: ATRAUMATIC - ENT Exam ENT Exam: Normal Exam - Neck Exam Neck Exam: Full ROM - Respiratory Exam Respiratory Exam: NORMAL BREATHING PATTERN - GI/Abdominal Exam GI & Abdominal Exam: Soft. absent: Rigid, Hernia, Mass - Rectal Exam Rectal Exam: Deferred - Extremities Exam Extremities Exam: Normal Inspection - Back Exam Back Exam: NORMAL INSPECTION. absent: tenderness - Neurological Exam Neurological Exam: Alert, Awake, Oriented x3 - Psychiatric Exam Psychiatric exam: Normal Affect, Normal Mood - Skin Skin Exam: Intact, Normal Color, Warm Assessment and Plan - Assessment and Plan (Free Text) Assessment: 76F presents with Diverticulitis and abscess on CT Plan: - Continue regular diet - Stable from surgical standpoint Further recs discuss with Dr. Rosales <Pj Rosales - Last Filed: 06/06/17 13:15> Subjective - Date & Time of Evaluation Time of Evaluation: 13:00 - Subjective Subjective: Patient was seen and examined at the bedside. Agree with resident's note above. CT scan abd/pelvis from today looks improved. Objective - Vital Signs/Intake and Output Vital Signs (last 24 hours): Temp Pulse Resp BP Pulse Ox 97.9 F 97 H 20 113/70 96 06/06/17 07:55 06/06/17 07:55 06/06/17 07:55 06/06/17 07:55 06/06/17 07:55 - Medications Medications: Current Medications Ciprofloxacin (Cipro) 500 mg PO Q12 PRASHANT PRN Reason: Protocol Last Admin: 06/05/17 21:27 Dose: 500 mg Doxycycline Hyclate (Doryx) 100 mg PO Q12 PRASHANT PRN Reason: Protocol Last Admin: 06/05/17 21:27 Dose: 100 mg Enoxaparin Sodium (Lovenox) 40 mg SC DAILY PRASHANT PRN Reason: Protocol Last Admin: 06/05/17 08:36 Dose: 40 mg Hydrocortisone (Cortizone 1% Cream) 1 applic TOP BID PRASHANT Last Admin: 06/05/17 18:42 Dose: 1 applic Metronidazole (Flagyl) 500 mg PO Q8 PRASHANT PRN Reason: Protocol Last Admin: 06/06/17 00:36 Dose: 500 mg - Labs Labs: 06/06/17 06:20 06/06/17 06:20 PT 12.7 Seconds (9.8-13.1) 06/01/17 18:24 INR 1.1 (0.9-1.2) 06/01/17 18:24 APTT 27.0 Seconds (25.6-37.1) 06/01/17 18:24 - GI/Abdominal Exam Additional comments: soft, NT, ND, BS+, no rebound, no guarding Assessment and Plan - Assessment and Plan (Free Text) Plan: - Continue low residue diet - Continue antibiotics as per ID - patient is clear for discharge home from the general surgery stand point - patient will need colonoscopy on the outpatient bases
[2017-06-06] MEDS ORDERED: Iohexol 300 100 ML IJ ONE (11:27)
--- NOTE | 2017-06-06 13:34 | CP.PCM.PCO ---
Physician Communication Note - Physician Communication Note Physician Communication Note: CT reviewed; pt cleared for discharge from surgical standpoint
[2017-06-06] MEDS: Enoxaparin 40 mg Syringe SC SCH (13:53)
--- NOTE | 2017-06-06 15:21 | CT ---
PROCEDURE: CT abdomen and pelvis dated 06/06/2017 HISTORY: Evaluation of abdominal abscess COMPARISON: Comparison made with prior study dated 06/01/2017. TECHNIQUE: Contiguous axial images of the abdomen and pelvis of performed following intravenous injection of contrast material. . This CT exam was performed using one or more of the following dose reduction techniques: Automated exposure control, adjustment of the mA and/or kV according to patient size, and/or use of iterative reconstruction technique. Contrast dose: 95 cc Omnipaque contrast material Radiation dose: Total exam DLP = 922.71 mGy-cm. FINDINGS: LOWER THORAX: No focal consolidation however there appears to be some minor areas of atelectasis and or scarring both lung bases. . No evidence of effusion or basilar pneumothorax. There is a small hiatal hernia with slight wall thickening of the distal esophagus that could be due to protrusion of gastric mucosa. Possibility of esophagitis not excluded. Cardiomegaly. LIVER: Liver exhibits normal size measuring approximately 13 cm in CC dimension. Very mild diffuse fatty hepatic infiltration. Portal and splenic veins are opacified. GALLBLADDER AND BILE DUCTS: Gallbladder physiologically distended. No evidence of intraluminal gallbladder calculi. PANCREAS: The pancreas appears slightly atrophic and fatty replaced. No pancreatic mass collection or calcification. SPLEEN: Spleen exhibits normal size and attenuation pattern re- demonstrated is a small low-attenuation focus posterior superior margin of the splenic parenchyma of uncertain etiology. Follow-up ultrasound may be of some benefit. ADRENALS: There are no adrenal lesions. KIDNEYS AND URETERS: Kidneys demonstrate symmetric nephrograms. No evidence of nephrolithiasis or hydronephrosis. BLADDER: Urinary bladder is physiologically distended. No evidence of intraluminal urinary bladder calculi. REPRODUCTIVE: Prominent endometrial canal in this age group. . Follow-up of pelvic ultrasound is suggested. Scattered uterine calcifications may in part be vascular however the possibility of a small calcified uterine fibroids not excluded. APPENDIX: Appendix not seen with complete certainty. BOWEL: Evaluation of the bowel is limited due to the lack of oral contrast material. The stomach is incompletely distended with liquid and air. There are multiple on mildly distended fluid filled loops of small bowel suggesting a partial and or intermittent small bowel obstruction . . Multiple colonic diverticula throughout the entire colon however the bulk of which arise from the sigmoid and distal descending colon again noted. Localized area of diverticulitis involving a short segment of the descending colon again noted. There is what appears to represent a localized small abscess collection containing fluid and air abutting the sigmoid colon and roof of the urinary bladder measuring approximately 2.2 t x 2.5 cm ap. This focus is best seen on axial image number [id number] PERITONEUM: Small abscess collection which contains bubbles of air as above. Small fat containing umbilical hernia again noted LYMPH NODES: Unremarkable. No enlarged lymph nodes. VASCULATURE: Unremarkable. No aortic aneurysm. BONES: Mild multilevel degenerative spondylosis of the thoracic spine. OTHER FINDINGS: None. IMPRESSION: Diverticulitis involving a short segment of the sigmoid colon associate with a small adjacent abscess collection as above. Re- demonstrated is a small area of low attenuation Findings suggest partial small bowel obstruction. Re- demonstrated is a small on nonspecific low-attenuation focus within the superior margin of the splenic parenchyma of uncertain etiology. Followup ultrasound could be performed for further evaluation if necessary. 6 Floor Nurse Karen informed these findings at approximately 2 p.m. with written down and read back verification.
--- NOTE | 2017-06-06 18:25 | CP.PCM.PN ---
Subjective - Date & Time of Evaluation Date of Evaluation: 06/06/17 Time of Evaluation: 07:00 - Subjective Subjective: Pt seen and examined at the bedside. No complaints. Tolerating diet. No n/v/abdominal pain. Ambulating. Objective - Vital Signs/Intake and Output Vital Signs (last 24 hours): Temp Pulse Resp BP Pulse Ox 98.4 F 77 20 118/75 96 06/06/17 16:08 06/06/17 16:08 06/06/17 16:08 06/06/17 16:08 06/06/17 16:08 - Medications Medications: Current Medications Ciprofloxacin (Cipro) 500 mg PO Q12 PRASHANT PRN Reason: Protocol Last Admin: 06/06/17 13:53 Dose: 500 mg Doxycycline Hyclate (Doryx) 100 mg PO Q12 PRASHANT PRN Reason: Protocol Last Admin: 06/06/17 13:53 Dose: 100 mg Enoxaparin Sodium (Lovenox) 40 mg SC DAILY PRASHANT PRN Reason: Protocol Last Admin: 06/06/17 13:53 Dose: Not Given Hydrocortisone (Cortizone 1% Cream) 1 applic TOP BID PRASHANT Last Admin: 06/06/17 17:51 Dose: 1 applic Metronidazole (Flagyl) 500 mg PO Q8 PRASHANT PRN Reason: Protocol Last Admin: 06/06/17 17:52 Dose: 500 mg - Labs Labs: 06/06/17 06:20 06/06/17 06:20 PT 12.7 Seconds (9.8-13.1) 06/01/17 18:24 INR 1.1 (0.9-1.2) 06/01/17 18:24 APTT 27.0 Seconds (25.6-37.1) 06/01/17 18:24 - Constitutional Appears: Well, Non-toxic, No Acute Distress - Head Exam Head Exam: NORMAL INSPECTION - Eye Exam Eye Exam: Normal appearance - ENT Exam ENT Exam: Mucous Membranes Moist - Respiratory Exam Respiratory Exam: Clear to Ausculation Bilateral. absent: Rales, Wheezes - Cardiovascular Exam Cardiovascular Exam: REGULAR RHYTHM, +S1, +S2. absent: Murmur - GI/Abdominal Exam GI & Abdominal Exam: Soft, Tenderness (Mild tenderness in lower quadrants). absent: Distended, Guarding, Rigid - Extremities Exam Extremities Exam: Pedal Edema - Neurological Exam Neurological Exam: Alert, Awake, Oriented x3 - Psychiatric Exam Psychiatric exam: Normal Affect - Skin Skin Exam: Normal Color Assessment and Plan - Assessment and Plan (Free Text) Assessment: Repeat CT today. Awaiting Surgical and GI clearance (and ABX recommendations for D/C.) #) Perforated Diverticulitis, resolving - Surgery consult (Dr. Barry/Connie)- no surgical intervention. Repeat CT reviewed. Cleared from surgical standpoint. - Ciprofloxacin 500 mg q12, Flagyl 500 mg q8 - GI consult: Dr. Wiggins - ID consult: Dr. Green - added doxycycline 100 mg q12 - Tolerating PO #) Sepsis, now resolved - Pt presented as meeting sepsis criteria: had HR above 90, WBC above 12,000, and suspected source of infection - Likely due to perforated diverticulitis #) Prophylaxis - Lovenox 40mg SC QD - SCDs - Ambulation
--- NOTE | 2017-06-06 18:57 | CP.PCM.PN ---
Subjective - Date & Time of Evaluation Date of Evaluation: 06/06/17 Time of Evaluation: 18:50 - Subjective Subjective: I D NOTE CT SCAN REVIEWED PATIENT COULD BE DISCHARGED ON ORALS DOXYCYCLINE/FLAGYLWILL NEED F/U CT SCAN AND COLONOSCOPY Objective - Vital Signs/Intake and Output Vital Signs (last 24 hours): Temp Pulse Resp BP Pulse Ox 98.4 F 77 20 118/75 96 06/06/17 16:08 06/06/17 16:08 06/06/17 16:08 06/06/17 16:08 06/06/17 16:08 - Medications Medications: Current Medications Ciprofloxacin (Cipro) 500 mg PO Q12 PRASHANT PRN Reason: Protocol Last Admin: 06/06/17 13:53 Dose: 500 mg Doxycycline Hyclate (Doryx) 100 mg PO Q12 PRASHANT PRN Reason: Protocol Last Admin: 06/06/17 13:53 Dose: 100 mg Enoxaparin Sodium (Lovenox) 40 mg SC DAILY PRASHANT PRN Reason: Protocol Last Admin: 06/06/17 13:53 Dose: Not Given Hydrocortisone (Cortizone 1% Cream) 1 applic TOP BID [facility] Last Admin: 06/06/17 17:51 Dose: 1 applic Metronidazole (Flagyl) 500 mg PO Q8 PRASHANT PRN Reason: Protocol Last Admin: 06/06/17 17:52 Dose: 500 mg - Labs Labs: 06/06/17 06:20 06/06/17 06:20 PT 12.7 Seconds (9.8-13.1) 06/01/17 18:24 INR 1.1 (0.9-1.2) 06/01/17 18:24 APTT 27.0 Seconds (25.6-37.1) 06/01/17 18:24
[2017-06-07 07:56] VITALS: BP 130/71; PULSE 68; RESP 20; TEMP 99.3
[2017-06-07] MEDS: Enoxaparin 40 mg Syringe SC SCH (08:47)
--- NOTE | 2017-06-07 10:29 | CP.PCM.PN ---
Subjective - Date & Time of Evaluation Date of Evaluation: 06/07/17 Time of Evaluation: 09:45 - Subjective Subjective: Patient was seen and examined at the bedside. Denies any abdominal pain, tolerating diet. Objective - Vital Signs/Intake and Output Vital Signs (last 24 hours): Temp Pulse Resp BP Pulse Ox 99.3 F 68 20 130/71 96 06/07/17 07:55 06/07/17 07:55 06/07/17 07:55 06/07/17 07:55 06/07/17 07:55 - Medications Medications: Current Medications Ciprofloxacin (Cipro) 500 mg PO Q12 PRASHANT PRN Reason: Protocol Last Admin: 06/07/17 08:46 Dose: 500 mg Doxycycline Hyclate (Doryx) 100 mg PO Q12 PRASHANT PRN Reason: Protocol Last Admin: 06/07/17 08:46 Dose: 100 mg Enoxaparin Sodium (Lovenox) 40 mg SC DAILY PRASHANT PRN Reason: Protocol Last Admin: 06/07/17 08:47 Dose: Not Given Hydrocortisone (Cortizone 1% Cream) 1 applic TOP BID PRASHANT Last Admin: 06/07/17 08:46 Dose: 1 applic Metronidazole (Flagyl) 500 mg PO Q8 PRASHANT PRN Reason: Protocol Last Admin: 06/07/17 08:46 Dose: 500 mg - Labs Labs: 06/06/17 06:20 06/06/17 06:20 PT 12.7 Seconds (9.8-13.1) 06/01/17 18:24 INR 1.1 (0.9-1.2) 06/01/17 18:24 APTT 27.0 Seconds (25.6-37.1) 06/01/17 18:24 - Constitutional Appears: Well, Non-toxic, No Acute Distress - Head Exam Head Exam: ATRAUMATIC, NORMAL INSPECTION, NORMOCEPHALIC - Eye Exam Eye Exam: EOMI, Normal appearance, PERRL Pupil Exam: NORMAL ACCOMODATION, PERRL - ENT Exam ENT Exam: Mucous Membranes Moist, Normal Exam - Neck Exam Neck Exam: Full ROM, Normal Inspection - Respiratory Exam Respiratory Exam: Clear to Ausculation Bilateral, NORMAL BREATHING PATTERN - Cardiovascular Exam Cardiovascular Exam: REGULAR RHYTHM, +S1, +S2 - GI/Abdominal Exam GI & Abdominal Exam: Soft, Normal Bowel Sounds Additional comments: NT, ND, BS+, no rebound, no guarding - Rectal Exam Rectal Exam: Deferred - Extremities Exam Extremities Exam: Full ROM, Normal Inspection - Neurological Exam Neurological Exam: Alert, Awake, CN II-XII Intact, Normal Gait, Oriented x3 - Psychiatric Exam Psychiatric exam: Normal Affect, Normal Mood - Skin Skin Exam: Dry, Intact, Normal Color, Warm Assessment and Plan - Assessment and Plan (Free Text) Assessment: 76 y.o. female with diverticulitis Plan: - Continue diet - Continue antibiotics as per ID - Patient is clear for discharge home from the general surgery stand point - Will require colonoscopy with GI on the outpatient bases
--- NOTE | 2017-06-07 15:14 | CP.PCM.DIS ---
Provider - Provider Date of Admission: 06/01/17 22:28 Attending physician: Sincere Alex MD Time Spent in preparation of Discharge (in minutes): 55 Hospital Course - Lab Results Lab Results: Micro Results 06/01/17 18:15 Blood-Venous Blood Culture - Final NO GROWTH AFTER 5 DAYS 06/01/17 18:15 Blood-Venous Gram Stain - Final TEST NOT PERFORMED 06/01/17 18:00 Blood-Venous Blood Culture - Final NO GROWTH AFTER 5 DAYS 06/01/17 18:00 Blood-Venous Gram Stain - Final TEST NOT PERFORMED 06/01/17 18:24 Urine,Clean Catch Urine Culture - Final No Growth (<1,000 CFU/ML) Most Recent Lab Values WBC 7.6 K/uL (4.8-10.8) 06/06/17 06:20 RBC 3.15 Mil/uL (3.80-5.20) L 06/06/17 06:20 Hgb 10.9 g/dL (12.0-16.0) L 06/06/17 06:20 Hct 32.7 % (34.0-47.0) L 06/06/17 06:20 MCV 103.6 fl (81.0-99.0) H 06/06/17 06:20 MCH 34.7 pg (27.0-31.0) H 06/06/17 06:20 MCHC 33.5 g/dL (33.0-37.0) 06/06/17 06:20 RDW 12.3 % (11.5-14.5) 06/06/17 06:20 Plt Count 206 K/uL (130-400) 06/06/17 06:20 MPV 8.4 fl (7.2-11.7) 06/06/17 06:20 Neut % (Auto) 65.1 % (50.0-75.0) 06/06/17 06:20 Lymph % (Auto) 17.2 % (20.0-40.0) L 06/06/17 06:20 [place] % (Auto) 12.5 % (0.0-10.0) H 06/06/17 06:20 Eos % (Auto) 4.6 % (0.0-4.0) H 06/06/17 06:20 Baso % (Auto) 0.6 % (0.0-2.0) 06/06/17 06:20 Neut # (Auto) 4.9 K/uL (1.8-7.0) 06/06/17 06:20 Lymph # (Auto) 1.3 K/uL (1.0-4.3) 06/06/17 06:20 [place] # (Auto) 0.9 K/uL (0.0-0.8) H 06/06/17 06:20 Eos # (Auto) 0.3 K/uL (0.0-0.7) 06/06/17 06:20 Baso # (Auto) 0.0 K/uL (0.0-0.2) 06/06/17 06:20 Neutrophils % (Manual) 83 % (42-75) H 06/01/17 18:24 Band Neutrophils % 4 % (0-2) H 06/01/17 18:24 Lymphocytes % (Manual) 7 % (20-50) L 06/01/17 18:24 Monocytes % (Manual) 5 % (0-10) 06/01/17 18:24 Metamyelocytes % 1 % (0-0) H 06/01/17 18:24 Smudge Cells Present 06/01/17 18:24 Platelet Estimate Normal (NORMAL) 06/01/17 18:24 Large Platelets Present 06/01/17 18:24 Macrocytosis (manual) Slight 06/01/17 18:24 PT 12.7 Seconds (9.8-13.1) 06/01/17 18:24 INR 1.1 (0.9-1.2) 06/01/17 18:24 APTT 27.0 Seconds (25.6-37.1) 06/01/17 18:24 Sodium 141 mmol/l (132-148) 06/06/17 06:20 Potassium 4.7 MMOL/L (3.6-5.0) 06/06/17 06:20 Chloride 102 mmol/L (98-107) 06/06/17 06:20 Carbon Dioxide 26 mmol/L (22-30) 06/06/17 06:20 Anion Gap 18 (10-20) 06/06/17 06:20 BUN 14 mg/dl (7-17) 06/06/17 06:20 Creatinine 0.9 mg/dl (0.7-1.2) 06/06/17 06:20 Est GFR ( Amer) > 60 06/06/17 06:20 Est GFR (Non-Af Amer) > 60 06/06/17 06:20 Random Glucose 94 mg/dL (65-105) 06/06/17 06:20 Lactic Acid 1.2 MMOL/L (0.7-2.1) 06/01/17 18:24 Calcium 8.9 mg/dL (8.4-10.2) 06/06/17 06:20 Total Bilirubin 1.3 mg/dl (0.2-1.3) 06/01/17 18:24 AST 34 U/L (14-36) 06/01/17 18:24 ALT 24 U/L (9-52) 06/01/17 18:24 Alkaline Phosphatase 53 U/L (38-126) 06/01/17 18:24 Total Protein 6.9 G/DL (6.3-8.2) 06/01/17 18:24 Albumin 3.8 g/dL (3.5-5.0) 06/01/17 18:24 Globulin 3.1 gm/dL (2.2-3.9) 06/01/17 18:24 Albumin/Globulin Ratio 1.2 (1.0-2.1) 06/01/17 18:24 Urine Color Stephania (YELLOW) 06/01/17 18:24 Urine Clarity Cloudy (Clear) 06/01/17 18:24 Urine pH 5.0 (5.0-8.0) 06/01/17 18:24 Ur Specific [place] 1.034 (1.003-1.030) H 06/01/17 18:24 Urine Protein 100 mg/dL (NEGATIVE) 06/01/17 18:24 Urine Glucose (UA) Neg mg/dL (Normal) 06/01/17 18:24 Urine Ketones Negative mg/dL (NEGATIVE) 06/01/17 18:24 Urine Blood Negative (NEGATIVE) 06/01/17 18:24 Urine Nitrate Negative (NEGATIVE) 06/01/17 18:24 Urine Bilirubin Negative (NEGATIVE) 06/01/17 18:24 Urine Urobilinogen 4.0 mg/dL (0.2-1.0) H 06/01/17 18:24 Ur Leukocyte Esterase Small Venkatesh/uL (Negative) 06/01/17 18:24 Urine RBC (Auto) 3 /hpf (0-3) 06/01/17 18:24 Urine Microscopic WBC 30 /hpf (0-5) H 06/01/17 18:24 Ur Squamous Epith Cells 8 /hpf (0-5) H 06/01/17 18:24 Urine Bacteria Rare (<OCC) 06/01/17 18:24 Blood Type A POSITIVE 06/01/17 21:07 Antibody Screen Negative 06/01/17 21:07 BBK History Checked No verified bt 06/01/17 21:07 - Hospital Course Hospital Course: Hospital Course: 76 y/o female presents to [facility] with abdominal pain and found to be in sepsis from a microperforated Diverticulitits. Evaluated by Surgery who sated that there was no surgical indication. Pt was also seen by GI and Infectious Disease. She was treated conservatively with antibiotics until sepsis resolved and clinically improved. Pt stable on discharge. Pt instructed to continue taking antibiotics for 2 weeks and f/u with PMD. As per GI and Surgery recommendations, she will need a colonoscopy in 8 weeks and a repeat abdominal CT as well. Discharge Exam - Head Exam Head Exam: ATRAUMATIC, NORMAL INSPECTION, NORMOCEPHALIC - Eye Exam Eye Exam: Normal appearance - ENT Exam ENT Exam: Mucous Membranes Moist - Respiratory Exam Respiratory Exam: Clear to PA & Lateral. absent: Rales, Wheezes - Cardiovascular Exam Cardiovascular Exam: REGULAR RHYTHM, +S1, +S2. absent: Systolic Murmur - GI/Abdominal Exam GI & Abdominal Exam: Normal Bowel Sounds, Soft. absent: Distended, Guarding, Tenderness - Neurological Exam Neurological exam: Alert, Oriented x3 Discharge Plan - Discharge Medications Prescriptions: Doxycycline Hyclate [Doryx] 100 mg PO Q12 14 Days #28 cap metroNIDAZOLE [Flagyl] 500 mg PO Q8 14 Days #42 tab - Follow Up Plan Condition: GOOD Disposition: HOME/ ROUTINE Instructions: Low Fiber Diet, Diverticulitis (DC) Additional Instructions: follow up with your primary MD 7-10 days. follow up with GI doctor for ct abdomen and colonoscopy in 8 weeks Referrals: Harish Zacarias MD [Staff Provider] - Sincere Alex MD [Family Provider] -
--- NOTE | 2017-06-08 08:27 | CP.PCM.PN ---
Subjective - Date & Time of Evaluation Date of Evaluation: 06/07/17 Time of Evaluation: 13:00 - Subjective Subjective: doing well Objective - Vital Signs/Intake and Output Vital Signs (last 24 hours): Temp Pulse Resp BP Pulse Ox 99.3 F 68 20 130/71 96 06/07/17 07:55 06/07/17 07:55 06/07/17 07:55 06/07/17 07:55 06/07/17 07:55 - Labs Labs: 06/06/17 06:20 06/06/17 06:20 PT 12.7 Seconds (9.8-13.1) 06/01/17 18:24 INR 1.1 (0.9-1.2) 06/01/17 18:24 APTT 27.0 Seconds (25.6-37.1) 06/01/17 18:24 - Head Exam Head Exam: NORMOCEPHALIC - Eye Exam Eye Exam: Normal appearance - ENT Exam ENT Exam: Normal Exam - Respiratory Exam Respiratory Exam: Clear to Ausculation Bilateral, NORMAL BREATHING PATTERN - Cardiovascular Exam Cardiovascular Exam: REGULAR RHYTHM - GI/Abdominal Exam GI & Abdominal Exam: Soft, Normal Bowel Sounds Assessment and Plan - Assessment and Plan (Free Text) Assessment: 76 yo female with diverticulitis dc planning colonoscopy in 8 weeks
[2017-06-08 14:56] VITALS: O2SAT 97
== END 2017-06-07 13:04 | disposition home or self-care (01) | DRG 872 ==
LOC: H.ER 16:18 → H.ERHOLD 22:28 → H.MEDSURG1 06-02 00:22
PROVIDERS: ADMIT Family Medicine; ATTEND Family Medicine
DX: A41.9 Sepsis, unspecified organism (principal); K57.80 Diverticulitis of intestine, part unspecified, with perforation and abscess without bleeding; Z87.01 Personal history of pneumonia (recurrent); M19.90 Unspecified osteoarthritis, unspecified site; H40.9 Unspecified glaucoma; J45.20 Mild intermittent asthma, uncomplicated